=== PATIENT | female | born 1930 | race Caucasian/White ===

== ENCOUNTER 2016-12-20 09:07 | Emergency (ER) | payer MEDICARE, OTHER ==
[2016-12-20] MEDS ORDERED: traMADol HCl 50 MG TAB ONE (09:51)
--- NOTE | 2016-12-20 10:27 | RAD ---
RIGHT RIBS TWO VIEWS CHEST RADIOGRAPH: History: Right upper side pain after sneezing and coughing. Comparison: None. FINDINGS: There is some cortical irregularity of the right lateral 10th rib which may represent underlying fra cture, age indeterminate. Lungs are somewhat hyperinflated. Chronic pleural and parenchymal change s. Dense calcifications in the tracheal bronchial tree. IMPRESSION: Moderate irregularity right lateral 9th and 10th ribs may represent age indeterminate fracture. Cor relation with focal tenderness is recommended. POS: JACOBY
--- NOTE | 2016-12-20 11:02 | ERRECORD ---
[facility] EMERGENCY RECORD HPI GENERAL (09:55 KNGU) CHIEF COMPLAINT: Patient presents for evaluation of R rib pain. HISTORIAN: History provided by patient, per patient , was coughing and sneezing yesterday / with R rib pain after / worse when moving / no shortness of breath chest pain/ no fever or chills / no nausea or vomiting symptoms. MECHANISM OF INJURY: from coughing and sneezing. LOCATION: Symptoms are localized, most severe to R lower rib anterior. QUALITY: Pain is dull in nature, described as aching. SEVERITY: Maximum severity of symptoms moderate, Currently symptoms are moderate. TIME COURSE: Gradual onset of symptoms, There has been no change in the patient's symptoms over time. ASSOCIATED WITH: No associated symptoms. EXACERBATED BY: Patient's condition exacerbated by moving or pressure on rib. RELIEVED BY: Nothing tried for relief. ROS (09:57 KNGU) CONSTITUTIONAL: Negative constitutional review of systems, Historian denies chills, denies fever. EYES: Negative eye review of systems. ENT: Historian reports rhinorrhea. CARDIOVASCULAR: Negative cardiovascular review of systems. RESPIRATORY: Historian reports cough, denies shortness of breath, denies sputum, denies stridor, denies wheezing. GI: Negative gastrointestinal review of systems. MUSCULOSKELETAL: R rib pain. NOTES: All systems reviewed, negative except as described above. PAST MEDICAL HISTORY (09:19 JPAR) MEDICAL HISTORY: Flu vaccine up to date, Pneumococcal vaccine up to date, Past medical history includes history of hyperlipidemia, Past medical history includes history of hypertension. FEMALE SURGICAL HISTORY: Surgical history of cholecystectomy, Surgical history of hysterectomy, Surgical history of orthopedic surgery, BILATERAL KNEE. Both Shoulders, rotator cuff. SOCIAL HISTORY: Patient denies alcohol use, Patient denies drug use, Patient has no smoking history. KNOWN ALLERGIES No Known Drug Allergies CURRENT MEDICATIONS Unknown (09:16 JPAR) fluticasone: &a-1R&a+25V*p+0X*h5745V*c152B*c15G*c2P*p-0X&a-25V&a+1RName: Valencia Hu : F86 MedRec: [id number] AcctNum: [id number] Prepared: Anson Dec 20, 2016 13:58 by Interface Page 1 of 4 pMD [facility] EMERGENCY RECORD SPRAY, SUSPENSION : Strength - 50 mcg : NASAL Patient Dose: 1 spray(s) Intranasal 2 times a day. (09:21 JPAR) azelastine: AEROSOL, SPRAY WITH PUMP (ML) : Strength - 205.5 mcg (0.15 %) : NASAL Patient Dose: 1 spray(s) Intranasal once a day. (09:22 JPAR) pramipexole: TABLET : Strength - 0.25 mg : ORAL Patient Dose: 2 tab(s) Oral once a day (at bedtime). (09:22 JPAR) atenolol: TABLET : Strength - 25 mg : ORAL Patient Dose: 1 tab(s) Oral once a day (at bedtime). (09:23 JPAR) lovastatin: TABLET : Strength - 20 mg : ORAL Patient Dose: 1 tab(s) Oral once a day (in the morning). (09:23 JPAR) lisinopril-hydrochlorothiazide: TABLET : Strength - 20 mg-12.5 mg : ORAL Patient Dose: 1 tab(s) Oral once a day (in the morning). (09:24 JPAR) gabapentin: CAPSULE : Strength - 300 mg : ORAL Patient Dose: 1 tab(s) Oral.unknown. (09:24 JPAR) aspirin: TABLET : Strength - 81 mg : ORAL Patient Dose: 1 tab(s) Oral once a day. (09:24 JPAR) Vitamin D3: CAPSULE : Strength - 1,000 unit : ORAL Patient Dose: 1 cap(s) Oral once a day. (09:26 JPAR) multivitamin: CAPSULE : ORAL Patient Dose: 1 cap(s) Oral once a day. (09:26 JPAR) Multiple Vitamin, Womens: TABLET : ORAL Patient Dose: 1 tab(s) Oral once a day. (09:27 JPAR) VITAL SIGNS VITAL SIGNS: BP: 181/76, Pulse: 63, Resp: 18, Temp: 97.9 (Oral), Pain: 5, O2 sat: 95, Time: 12/20/2016 09:16. (09:16 JPAR) BP: 173/75, Pulse: 61, Resp: 16, O2 sat: 95, Time: 12/20/2016 10:38. (10:38 JPAR) PHYSICAL EXAM (09:59 KNGU) CONSTITUTIONAL: Vital signs reviewed, Patient afebrile, Pulse normal, Blood pressure, hypertensive, Respiratory rate normal, Patient appears non toxic, Patient appears in pain, in mild pain distress, Patient alert and oriented to person, place and time. &a-1R&a+25V*p+0X*y2237O*c152B*c15G*c2P*p-0X&a-25V&a+1RName: Valencia Hu : F86 MedRec: [id number] AcctNum: [id number] Prepared: MonDec 20, 2016 13:58 by Interface Page 2 of 4 pMD [facility] EMERGENCY RECORD HEAD: Head exam normal. EYES: Eye exam normal. ENT: Nose exam included findings of, clear nasal discharge. RESPIRATORY CHEST: Breath sounds clear, No wheezing, No rales, No rhonchi, Tenderness, mild, Palpation of chest reproduces symptoms, R lower rib anteriorly no deformity seen. CARDIOVASCULAR: Cardiovascular assessment normal. BACK: Back exam normal. NEURO: Neuro exam normal. MEDICATION ADMINISTRATION SUMMARY Drug Name: traMADol, Dose Ordered: 1 tab(s), Route: Oral, Status: Given, Time: 09:52 12/20/2016, Detailed record available in Medication Service section. DOCTOR NOTES (09:54 KNGU) TEXT: 86 yo F with cough and sneeze hard last night with R side rib pain no sob no fever or chills xray prelim possible fracture 9 th 10th rib on xray pain meds control cough med to follow up with pcp in few days to recheck. PROBLEM LIST No recorded problems DIAGNOSIS (10:30 KNGU) FINAL: PRIMARY: Rib fracture. PRESCRIPTION traMADol: TABLET : 50 mg : ORAL : Quantity: 1 Unit: tab(s) Route: ORAL Schedule: every 8 hours PRN Dispense: 15 Unit: tab(s) May substitute. Refills: No Refills . (10:31 KNGU) NOTES: No Refills. (10:31 KNGU) Cheratussin AC: LIQUID (ML) : 100 mg-10 mg/5 mL : ORAL : Quantity: 5 Unit: mL Route: ORAL Schedule: every 8 hours PRN Dispense: 1 May substitute. Refills: No Refills . (10:33 KNGU) NOTES: take 3 times a day for cough as needed No Refills. (10:33 KNGU) DISPOSITION PATIENT: Disposition Type: Discharge, Disposition: *Discharge Home. (10:30 KNGU) Patient left the department. (10:45 JPAR) Harrison: &a-1R&a+25V*p+0X*o4930M*c152B*c15G*c2P*p-0X&a-25V&a+1RName: Valencia Hu : F86 MedRec: [id number] AcctNum: [id number] Prepared: ilene Dec 20, 2016 13:58 by Interface Page 3 of 4 pMD [facility] EMERGENCY RECORD CHRISTEN=TONI English, Roc KAY=MD Fay, Chantal &a-1R&a+25V*p+0X*z1627Z*c152B*c15G*c2P*p-0X&a-25V&a+1RName: Valencia Hu : F[birth year] MedRec: [id number] AcctNum: [id number] Prepared: Anson Dec 20, 2016 13:58 by Interface Page 4 of 4 pMD MTDD
--- NOTE | 2016-12-20 11:04 | PICIS ---
[facility] EMERGENCY RECORD TRIAGE (MonDec 20, 2016 09:13 JPAR) TRIAGE NOTES: R upper side pain, started after sneezing and coughing, 2-3 days onset. (MonDec 20, 2016 09:13 JPAR) PATIENT: NAME: Valencia Hu, AGE: 86, GENDER: female, : Kelly 1930, TIME OF GREET: MonDec 20, 2016 09:07, PREFERRED LANGUAGE: Paraguayan, ETHNICITY: Not or , ECODE BILLING MAP: [facility], SSN: [id number], Zip Code: [address], KG WEIGHT: 69.85, PHONE: , , , PERSON ID: [id number], PCP: Stephanie BARLOW C. [facility]. (MonDec 20, 2016 09:13 JPAR) COMPLAINT: RIGHT SIDE PAIN. (MonDec 20, 2016 09:13 JPAR) ADMISSION: URGENCY: 4 Non Urgent, ADMISSION SOURCE: Home, TRANSPORT: CAR, BED: TRIAGE. (MonDec 20, 2016 09:13 JPAR) ASSESSMENT: Assessment: R pain chest wall after coughing and sneezing 2-3 days ago, Symptoms began 2-3 days, Symptoms began 3 days ago. (09:19 JPAR) SIRS SCORING: Heart Rate 55-109 (0), Temp range 96.8-101.1 (0), respiratory rate 12-24 (0), Mental Status altered: no (0), Infection or Suspected Infection: No. (09:19 JPAR) TRIAGE SCREENING: Patient denies suicidal ideation, Patient denies presence of domestic violence. (09:19 JPAR) PROVIDERS: TRIAGE NURSE: Roc English RN. (MonDec 20, 2016 09:13 JPAR) VITAL SIGNS: BP 181/76, Pulse 63, Resp 18, Temp 97.9, (Oral), Pain 5, O2 Sat 95, Time 12/20/2016 09:16. (09:16 JPAR) PREVIOUS VISIT ALLERGIES: No Known Drug Allergies. (MonDec 20, 2016 09:13 JPAR) No Known Drug Allergies. (09:19 JPAR) KNOWN ALLERGIES No Known Drug Allergies CURRENT MEDICATIONS Unknown (09:16 JPAR) fluticasone: SPRAY, SUSPENSION : Strength - 50 mcg : NASAL Patient Dose: 1 spray(s) Intranasal 2 times a day. (09:21 JPAR) azelastine: AEROSOL, SPRAY WITH PUMP (ML) : Strength - 205.5 mcg (0.15 %) : NASAL Patient Dose: 1 spray(s) Intranasal once a day. (09:22 JPAR) pramipexole: TABLET : Strength - 0.25 mg : ORAL Patient Dose: 2 tab(s) Oral once a day (at bedtime). (09:22 JPAR) atenolol: TABLET : Strength - 25 mg : ORAL Patient Dose: 1 tab(s) Oral once a day (at bedtime). (09:23 JPAR) lovastatin: &a-1R&a+25V*p+0X*t3747P*c152B*c15G*c2P*p-0X&a-25V&a+1RName: Valencia Hu : F86 MedRec: [id number] AcctNum: [id number] Prepared: Anson Dec 20, 2016 14:04 by Interface Page 1 of 6 pMD [facility] EMERGENCY RECORD TABLET : Strength - 20 mg : ORAL Patient Dose: 1 tab(s) Oral once a day (in the morning). (09:23 JPAR) lisinopril-hydrochlorothiazide: TABLET : Strength - 20 mg-12.5 mg : ORAL Patient Dose: 1 tab(s) Oral once a day (in the morning). (09:24 JPAR) gabapentin: CAPSULE : Strength - 300 mg : ORAL Patient Dose: 1 tab(s) Oral.unknown. (09:24 JPAR) aspirin: TABLET : Strength - 81 mg : ORAL Patient Dose: 1 tab(s) Oral once a day. (09:24 JPAR) Vitamin D3: CAPSULE : Strength - 1,000 unit : ORAL Patient Dose: 1 cap(s) Oral once a day. (09:26 JPAR) multivitamin: CAPSULE : ORAL Patient Dose: 1 cap(s) Oral once a day. (09:26 JPAR) Multiple Vitamin, Womens: TABLET : ORAL Patient Dose: 1 tab(s) Oral once a day. (09:27 JPAR) VITAL SIGNS VITAL SIGNS: BP: 181/76, Pulse: 63, Resp: 18, Temp: 97.9 (Oral), Pain: 5, O2 sat: 95, Time: 12/20/2016 09:16. (09:16 JPAR) BP: 173/75, Pulse: 61, Resp: 16, O2 sat: 95, Time: 12/20/2016 10:38. (10:38 JPAR) NURSING ASSESSMENT: FOCUSED (09:14 JPAR) CONSTITUTIONAL: Patient arrives, via personal wheelchair, Gait steady, History obtained from patient, Patient appears comfortable, Patient cooperative, Patient alert, Oriented to person, place and time, Skin warm, Skin dry, Skin normal in color, Mucous membranes pink, Mucous membranes moist, Patient complains of R rib cage pain 2-3 days, started after sneezing/ coughing episode 3 days ago. PAIN: aching pain, Onset of pain 2-3 days, on a scale 0-10 patient rates pain as 5, Pain exacerbated by, bending, lifting, Taking deep breaths or coughing. RESPIRATORY: Focused respiratory assessment findings include breath sounds clear, Breath sounds not absent, Breath sounds not diminished, Breath sounds without rales, Breath sounds without rhonchi, Breath sounds without wheezing. SAFETY: Side rails up, Cart/Stretcher in lowest position, Family at bedside, Call light within reach, Hospital ID band on. NURSING PROCEDURE: DISCHARGE NOTE (10:38 JPAR) DISCHARGE: Patient discharged to home, in a wheelchair, family driving, accompanied by other family member, Summary of Care &a-1R&a+25V*p+0X*n3471J*c152B*c15G*c2P*p-0X&a-25V&a+1RName: Valencia Hu : F86 MedRec: [id number] AcctNum: [id number] Prepared: Anson Dec 20, 2016 14:04 by Interface Page 2 of 6 pMD [facility] EMERGENCY RECORD printed/ provided, Patient requested and was provided an electronic copy of Discharge Instructions, Transition record given to patient, Discharge instructions given to patient, Simple or moderate discharge teaching performed, Prescriptions given and instructions on side effects given, Name of prescription(s) given: Tramadol & Cheratussin, Medication reconciliation form given, Above person(s) verbalized understanding of discharge instructions and follow-up care, Patient treated and evaluated by physician. BELONGINGS: Belongings and valuables with patient at time of discharge include:, Belongings remain with patient, Valuables remain with patient. SAFETY: Side rails up, Cart/Stretcher in lowest position, Family at bedside, Call light within reach, Hospital ID band on. VITAL SIGNS: BP: 173, / 75, Pulse: 61, Resp: 16, O2 sat: 95. NURSING PROCEDURE: TRANSPORT TO TESTS TRANSPORT TO TESTS: Patient transported to x-ray, via cart, Accompanied by x-ray photovoltaic testing technician. (09:33 CCRI) Patient transported to x-ray, via cart, Accompanied by x-ray photovoltaic testing technician, Patient arrived in location at 09:45A, Patient departed location at 09:55A. (09:54 CCRI) ORDER DETAILS Order Name: XR Ribs Rt>= 2 View W/PA CXR, Status: Active, Time: 09:27 12/20/2016, User: ELIZA, - Ordered for: MD Fay, Chantal, - Entered by: MD Fay, Chantal Caro ilene Dec 20, 2016 09:27, - Quantity: 1. MEDICATION ADMINISTRATION SUMMARY Drug Name: traMADol, Dose Ordered: 1 tab(s), Route: Oral, Status: Given, Time: 09:52 12/20/2016, Detailed record available in Medication Service section. MEDICATION SERVICE (09:52 [facility]) traMADol: Order: traMADol (tramadol HCl) - Dose: 1 tab(s) : Oral Schedule: Now Ordered by: Chantal Aponte MD Entered by: Chantal Aponte MD ilene Dec 20, 2016 09:28 , Acknowledged by: Roc English RN ilene Dec 20, 2016 09:28 Documented as given by: Roc English RN ilene Dec 20, 2016 09:52 Patient, Medication, Dose, Route and Time verified prior to administration. Correct patient, time, route, dose and medication confirmed prior to administration, Patient advised of actions and side-effects prior to administration, Allergies confirmed and medications reviewed prior to administration, Patient in position of comfort, Side rails up, Cart in lowest position, Family at bedside, Call light in reach. &a-1R&a+25V*p+0X*s7899W*c152B*c15G*c2P*p-0X&a-25V&a+1RName: Valencia Hu : F86 MedRec: [id number] AcctNum: [id number] Prepared: Anson Dec 20, 2016 14:04 by Interface Page 3 of 6 pMD [facility] EMERGENCY RECORD HPI GENERAL (09:55 KNGU) CHIEF COMPLAINT: Patient presents for evaluation of R rib pain. HISTORIAN: History provided by patient, per patient , was coughing and sneezing yesterday / with R rib pain after / worse when moving / no shortness of breath chest pain/ no fever or chills / no nausea or vomiting symptoms. MECHANISM OF INJURY: from coughing and sneezing. LOCATION: Symptoms are localized, most severe to R lower rib anterior. QUALITY: Pain is dull in nature, described as aching. SEVERITY: Maximum severity of symptoms moderate, Currently symptoms are moderate. TIME COURSE: Gradual onset of symptoms, There has been no change in the patient's symptoms over time. ASSOCIATED WITH: No associated symptoms. EXACERBATED BY: Patient's condition exacerbated by moving or pressure on rib. RELIEVED BY: Nothing tried for relief. ROS (09:57 KNGU) CONSTITUTIONAL: Negative constitutional review of systems, Historian denies chills, denies fever. EYES: Negative eye review of systems. ENT: Historian reports rhinorrhea. CARDIOVASCULAR: Negative cardiovascular review of systems. RESPIRATORY: Historian reports cough, denies shortness of breath, denies sputum, denies stridor, denies wheezing. GI: Negative gastrointestinal review of systems. MUSCULOSKELETAL: R rib pain. NOTES: All systems reviewed, negative except as described above. PAST MEDICAL HISTORY (09:19 JPAR) MEDICAL HISTORY: Flu vaccine up to date, Pneumococcal vaccine up to date, Past medical history includes history of hyperlipidemia, Past medical history includes history of hypertension. FEMALE SURGICAL HISTORY: Surgical history of cholecystectomy, Surgical history of hysterectomy, Surgical history of orthopedic surgery, BILATERAL KNEE. Both Shoulders, rotator cuff. SOCIAL HISTORY: Patient denies alcohol use, Patient denies drug use, Patient has no smoking history. PHYSICAL EXAM (09:59 KNGU) CONSTITUTIONAL: Vital signs reviewed, Patient afebrile, Pulse normal, Blood pressure, hypertensive, Respiratory rate normal, Patient appears non toxic, Patient appears in pain, in mild pain distress, Patient alert and &a-1R&a+25V*p+0X*h0051F*c152B*c15G*c2P*p-0X&a-25V&a+1RName: Valencia Hu : F86 MedRec: [id number] AcctNum: [id number] Prepared: MonDec 20, 2016 14:04 by Interface Page 4 of 6 pMD [facility] EMERGENCY RECORD oriented to person, place and time. HEAD: Head exam normal. EYES: Eye exam normal. ENT: Nose exam included findings of, clear nasal discharge. RESPIRATORY CHEST: Breath sounds clear, No wheezing, No rales, No rhonchi, Tenderness, mild, Palpation of chest reproduces symptoms, R lower rib anteriorly no deformity seen. CARDIOVASCULAR: Cardiovascular assessment normal. BACK: Back exam normal. NEURO: Neuro exam normal. EVENTS TRANSFER: Triage to Emergency Triage. (MonDec 20, 2016 09:13 JPAR) Emergency Triage to Emergency Room -02. (09:16 JPAR) Removed from Emergency Emergency Room -02. (10:45 JPAR) DOCTOR NOTES (09:54 KNGU) TEXT: 86 yo F with cough and sneeze hard last night with R side rib pain no sob no fever or chills xray prelim possible fracture 9 th 10th rib on xray pain meds control cough med to follow up with pcp in few days to recheck. PROBLEM LIST No recorded problems DIAGNOSIS (10:30 KNGU) FINAL: PRIMARY: Rib fracture. DISPOSITION PATIENT: Disposition Type: Discharge, Disposition: *Discharge Home. (10:30 KNGU) Patient left the department. (10:45 JPAR) INSTRUCTION (10:33 KNGU) DISCHARGE: RIB FRACTURE. FOLLOWUP: Stephanie BARLOW, Chong OTT, [facility], [address] [place] [id number], [phone]. SPECIAL: avoid heavy lifting / bending motion take pain medications / cough medication as needed Follow-up with your PCP in few days to recheck. PRESCRIPTION traMADol: TABLET : 50 mg : ORAL : Quantity: 1 Unit: tab(s) Route: ORAL Schedule: every 8 hours PRN Dispense: 15 Unit: tab(s) &a-1R&a+25V*p+0X*k2296M*c152B*c15G*c2P*p-0X&a-25V&a+1RName: Valencia Hu : F86 MedRec: [id number] AcctNum: [id number] Prepared: MonDec 20, 2016 14:04 by Interface Page 5 of 6 pMD [facility] EMERGENCY RECORD May substitute. Refills: No Refills . (10:31 KNGU) NOTES: No Refills. (10:31 KNGU) Cheratussin AC: LIQUID (ML) : 100 mg-10 mg/5 mL : ORAL : Quantity: 5 Unit: mL Route: ORAL Schedule: every 8 hours PRN Dispense: 1 May substitute. Refills: No Refills . (10:33 KNGU) NOTES: take 3 times a day for cough as needed No Refills. (10:33 KNGU) IMAGING (10:44 JPAR) *SUPPLY CHARGE SHEET: Image captured from scanner. *DISCHARGE INSTRUCTIONS RECEIPT: Image captured from scanner. ADMIN (13:53 KNGU) DIGITAL SIGNATURE: MD Fay, Chantal. Harrison: CCRI=VIDYA Hernandez Clemente JPAR=Amador, TONI, Roc KNGU=MD Fay, Chantal &a-1R&a+25V*p+0X*u2314I*c152B*c15G*c2P*p-0X&a-25V&a+1RName: Valencia Hu : F[birth year] MedRec: [id number] AcctNum: [id number] Prepared: MonDec 20, 2016 14:04 by Interface Page 6 of 6 pMD MTDD
== END 2016-12-20 10:38 | disposition home or self-care (01) ==
LOC: NAV ERS 09:07
DX: S22.31XA Fracture of one rib, right side, initial encounter for closed fracture (principal); I10 Essential (primary) hypertension; E78.5 Hyperlipidemia, unspecified; Z79.82 Long term (current) use of aspirin; Z79.899 Other long term (current) drug therapy; X58.XXXA Exposure to other specified factors, initial encounter
CPT/HCPCS: 99283

== ENCOUNTER 2016-12-22 18:06 | Emergency (ER) | payer MEDICARE, OTHER ==
[2016-12-22 19:00] LABS: #Basophils 0.1 thou/uL (0.0-0.2); #Eosinphils 0.1 thou/uL (0.0-0.7); #Lymphocytes 2.2 thou/uL (1.20-3.40); #Monocytes 0.7 thou/uL (0.11-0.59); #Neutrophils 6.4 thou/uL (1.40-6.50); %Basophils 0.7 % (0.0-1.0); %Eosinophils 1.5 % (0.0-10.0); %Lymphocytes 23.6 % (21.0-51.0); %Monocytes 7.1 % (0.0-10.0); Hematocrit 36.9 % (36.0-47.0); Red Blood Cell (RBC) Count 4.03 mill/uL (4.20-5.40); White Blood Cell (WBC) Count 9.5 thou/uL (4.8-10.8)
[2016-12-22 19:07] LABS: Bilirubin Negative (Negative); Blood, Urine Negative (Negative); Glucose, Urine (Dipstick) Negative (Negative); Ketone, Urine Negative (Negative); Nitrite Negative (Negative); Protein, Urine (Dipstick) Negative (Neg-Trace); Urobilinogen 0.2 mg/dL (0.2-1.0)
[2016-12-22 19:09] LABS: ALT (SGPT) 12 U/L (0-55); AST (SGOT) 22 U/L (5-34); Alkaline Phosphatase 89 U/L (40-150); Anion Gap 14 mmol/L (10-20); BUN (Urea Nitrogen) 33 mg/dL (9.8-20.1); Bilirubin, Total 0.2 mg/dL (0.2-1.2); Calc. Creatinine Clearance 0 mL/min (70-130); Calcium 8.9 mg/dL (7.8-10.44); Carbon Dioxide 21 mmol/L (23-31); Chloride 103 mmol/L (98-107); Estimated GFR-MDRD 36; Globulin 2.5 g/dL (2.4-3.5); Protein, Total 6.1 g/dL (5.8-8.1)
[2016-12-22 19:35] LABS: Bacteria/HPF Rare-Few HPF (None Seen); Squamous Epithelial 0-3 HPF (0-3)
[2016-12-22] MEDS ORDERED: Cipro 250 MG TAB ONE (19:38)
--- NOTE | 2016-12-22 20:14 | ERRECORD ---
[facility] EMERGENCY RECORD ADMIN (18:16 BDON) MERGE: Ambulance Kelly Dec 22, 2016 17:59. HPI FALL (Sat Dec 24, 2016 07:30 JLOY) CHIEF COMPLAINT: Patient presents for evaluation of Pt was seen in ER 3 days ago for right rib fracture from coughing. Has had a bad cough for 'some time'. Given codeine cough syrup and tramadol per family and since then has been a little more confused than usual. Also a little more generalized weakness. No other symptoms. Pt was found on the floor by family today after she slid down onto the gorund getting out of bed. Landed flat on her back and reports no injury or pain. Pt lay there for 1-2 hours before being found. HISTORIAN: History provided by patient, History provided by patient's family. LOCATION: No localizing symptoms. ASSOCIATED WITH: No associated contusion(s), No associated laceration(s), No associated deformity, Associated with Chronic right low back pain unchanged., No associated blurred vision, No associated inability to ambulate, No associated inability to bear weight, No associated headache, No associated loss of consciousness, No associated neurological symptoms prior to arrival, No associated numbness, No associated syncope, No associated vomiting. EXACERBATED BY: Patient's condition exacerbated by nothing. RELIEVED BY: Patient's condition relieved by nothing. ROS ([facility] Dec 24, 2016 07:33 JLOY) CONSTITUTIONAL: Historian denies chills, denies fever. ENT: Historian denies rhinorrhea, denies sore throat. CARDIOVASCULAR: Historian denies chest pain. RESPIRATORY: Historian reports cough, denies shortness of breath, denies sputum. GI: Historian denies abdominal pain, denies diarrhea, denies nausea, denies vomiting. GENITOURINARY FEMALE: Historian denies dysuria, denies frequency, denies hematuria. MUSCULOSKELETAL: Historian denies neck pain, Chronic right low back pain. SKIN: Historian denies rash, denies skin changes. NEUROLOGIC: Historian denies dizziness, denies headache, denies paralysis, denies paresthesias, denies sensory changes. PAST MEDICAL HISTORY MEDICAL HISTORY: Flu vaccine up to date, Pneumococcal vaccine up to date, Past medical history includes history of hyperlipidemia, Past medical history includes history of hypertension. (18:16 LHAL) FEMALE SURGICAL HISTORY: Surgical history of cholecystectomy, Surgical history of hysterectomy, Surgical history of orthopedic surgery, BILATERAL KNEE. Both Shoulders, rotator cuff. (18:16 LHAL) SOCIAL HISTORY: Patient denies alcohol use, Patient denies &a-1R&a+25V*p+0X*[id number]*c152B*c15G*c2P*p-0X&a-25V&a+1RName: Valencia Hu : F86 MedRec: [id number] AcctNum: [id number] Prepared: [facility] Dec 24, 2016 07:44 by Interface Page 1 of 4 pMD [facility] EMERGENCY RECORD drug use, Patient has no smoking history. (18:16 LHAL) NOTES: Nursing records reviewed, Agree with nursing records. ([facility] Dec 24, 2016 07:35 JL) KNOWN ALLERGIES No Known Drug Allergies CURRENT MEDICATIONS fluticasone: SPRAY, SUSPENSION : Strength - 50 mcg : NASAL Patient Dose: 1 spray(s) Intranasal 2 times a day. (18:12 LHAL) azelastine: AEROSOL, SPRAY WITH PUMP (ML) : Strength - 205.5 mcg (0.15 %) : NASAL Patient Dose: 1 spray(s) Intranasal once a day. (18:12 LHAL) pramipexole: TABLET : Strength - 0.25 mg : ORAL Patient Dose: 2 tab(s) Oral once a day (at bedtime). (18:12 LHAL) atenolol: TABLET : Strength - 25 mg : ORAL Patient Dose: 1 tab(s) Oral once a day (at bedtime). (18:12 LHAL) lovastatin: TABLET : Strength - 20 mg : ORAL Patient Dose: 1 tab(s) Oral once a day (in the morning). (18:12 LHAL) lisinopril-hydrochlorothiazide: TABLET : Strength - 20 mg-12.5 mg : ORAL Patient Dose: 1 tab(s) Oral once a day (in the morning). (18:12 LHAL) gabapentin: CAPSULE : Strength - 300 mg : ORAL Patient Dose: 1 tab(s) Oral.unknown. (18:12 LHAL) aspirin: TABLET : Strength - 81 mg : ORAL Patient Dose: 1 tab(s) Oral once a day. (18:12 LHAL) Vitamin D3: CAPSULE : Strength - 1,000 unit : ORAL Patient Dose: 1 cap(s) Oral once a day. (18:12 LHAL) multivitamin: CAPSULE : ORAL Patient Dose: 1 cap(s) Oral once a day. (18:12 LHAL) Multiple Vitamin, Womens: TABLET : ORAL Patient Dose: 1 tab(s) Oral once a day. (18:13 LHAL) traMADol: TABLET : Strength - 50 mg : ORAL Patient Dose: 1 tab(s) Oral every 8 hours PRN. (18:13 LHAL) Cheratussin AC: &a-1R&a+25V*p+0X*[id number]*c152B*c15G*c2P*p-0X&a-25V&a+1RName: Valencia Hu : F86 MedRec: [id number] AcctNum: [id number] Prepared: Sat Dec 24, 2016 07:44 by Interface Page 2 of 4 pMD [facility] EMERGENCY RECORD LIQUID (ML) : Strength - 100 mg-10 mg/5 mL : ORAL Patient Dose: 5 mL Oral every 8 hours PRN.take 3 times a day for cough as needed. (18:13 LHAL) VITAL SIGNS VITAL SIGNS: BP: 148/64 (Sitting), Pulse: 82 (Regular), Resp: 16 (Non-Labored), Temp: 96.8 (Oral), Pain: 2 (Constant), O2 sat: 96 on Room Air, Time: 12/22/2016 18:11. (18:11 LHAL) BP: 144/68, Pulse: 82, Resp: 20, Temp: 97.2 ORAL, O2 sat: 97 on ra, Time: 12/22/2016 19:55. (19:55 EPIE) PHYSICAL EXAM (Sat Dec 24, 2016 07:33 JLOY) CONSTITUTIONAL: Vital signs reviewed, Patient appears non toxic, Patient alert and oriented to person, place and time, PT fully oriented and no signs of confusion on exam but family reports her responses aren't as fast as usual. HEAD: Head exam included findings of head atraumatic, normocephalic. EYES: Eye exam included findings of eyelids normal to inspection, Pupils equally round and reactive to light, Extraocular muscles intact, Conjunctiva normal. ENT: Pharynx exam normal, Uvula exam normal, Tonsil exam normal, Mouth exam normal, mucous membranes moist. NECK: Neck exam included findings of normal range of motion, Trachea midline, no tenderness, no abrasions, no contusions, no ecchymosis. RESPIRATORY CHEST: Respiratory exam included findings of no respiratory distress, Breath sounds clear, No wheezing, No rales, No rhonchi, Chest exam included findings of chest movement symmetrical, Tenderness, mild, to the right anterior chest. CARDIOVASCULAR: Cardiovascular exam included findings of heart rate regular rate and rhythm, Heart sounds normal. ABDOMEN FEMALE: Abdominal exam included findings of abdomen nontender, Bowel sounds normal. BACK: Back exam included findings of normal inspection, range of motion normal, Tenderness, paraspinal to the right lower, No midline tenderness. UPPER EXTREMITY: Upper extremity exam included findings of inspection normal, range of motion normal, Radial pulse normal, no cyanosis, no clubbing, no edema. NEURO: Neuro exam findings include patient oriented to person, place and time, [place] coma scale 15, Speech normal. SKIN: Skin exam included findings of skin warm, dry, and normal in color, no rash. PSYCHIATRIC: Normal affect. MEDICATION ADMINISTRATION SUMMARY Drug Name: ciprofloxacin HCl oral, Dose Ordered: 250 mg, Route: Oral, Status: Ordered, Time: 19:36 12/22/2016, Detailed record available in &a-1R&a+25V*p+0X*[id number]*c152B*c15G*c2P*p-0X&a-25V&a+1RName: Valencia Hu : F86 MedRec: [id number] AcctNum: [id number] Prepared: Sat Dec 24, 2016 07:44 by Interface Page 3 of 4 pMD [facility] EMERGENCY RECORD Medication Service section. DOCTOR NOTES (Sat Dec 24, 2016 07:36 JLOY) TEXT: Possible UTI but symptoms likely related to codeine or tramadol side effects. Pt also started amitriptyline 3 days ago which could account for her symptoms. Will hold these new meds. PROBLEM LIST No recorded problems DIAGNOSIS (19:37 JLOY) FINAL: PRIMARY: UTI, ADDITIONAL: Altered mental status. PRESCRIPTION (19:36 JLOY) ciprofloxacin HCl oral: TABLET : 250 mg : ORAL : Quantity: 250 Unit: mg Route: ORAL Schedule: 2 times a day Dispense: 5 days May substitute. Refills: No Refills . NOTES: No Refills. DISPOSITION PATIENT: Disposition Type: Discharge, Disposition: *Discharge Home. (19:37 JACOBO) Patient left the department. (20:06 MAUDE) Harrison: ROSALBA=TONI Lee, Irish SANTORO=TONI Sainz, Mady CENTENO=MD Alberto, Vinny CARDONAAL=TONI Cartwright, Marcy &a-1R&a+25V*p+0X*[id number]*c152B*c15G*c2P*p-0X&a-25V&a+1RName: Valencia Hu : F86 MedRec: [id number] AcctNum: [id number] Prepared: Navin Dec 24, 2016 07:44 by Interface Page 4 of 4 pMD MTDD
--- NOTE | 2016-12-22 20:18 | PICIS ---
[facility] EMERGENCY RECORD ADMIN MERGE: Ambulance MonDec 22, 2016 17:59. (18:16 BDON) TRIAGE (MonDec 22, 2016 18:12 LHAL) TRIAGE NOTES: NO REAL COMPLAINT, HAS CHRONIC NECK/BACK PAIN. (MonDec 22, 2016 18:12 LHAL) PATIENT: NAME: Valencia Hu, AGE: 86, GENDER: female, : Kelly 1930, TIME OF GREET: MonDec 22, 2016 18:07, PREFERRED LANGUAGE: Yakut, ETHNICITY: Not or , ECODE BILLING MAP: [facility] ER, SSN: [id number], Zip Code: [address], KG WEIGHT: 68.95, PHONE: daug, , , PERSON ID: [id number], PCP: Stephanie BARLOW C. HENRY. (Kelly Dec 22, 2016 18:12 LHAL) COMPLAINT: FELL,OVER MEDICATION. (MonDec 22, 2016 18:12 LHAL) ADMISSION: URGENCY: 4 Non Urgent, ADMISSION SOURCE: Home, TRANSPORT: AMBULANCE - [facility], BED: ER -02. (MonDec 22, 2016 18:12 LHAL) ASSESSMENT: Assessment: DAUGHTER THINKS PT IS OVER MEDICATING HERSELF AND WAS FOUND OF FLOOR UX MANAGER, Symptoms began JUST UX MANAGER. (18:16 LHAL) PAIN: Patient complains of pain described as, aching, on a scale 0-10 patient rates pain as 2, Location PT HAS [place] CHRONIC NECK AND BACK PAIN, SHE STATES "SINCE 1942", Pain is intermittent, No aggravating factors, No efforts tried to relieve symptoms. (18:16 LHAL) IMMUNIZATIONS: Flu vaccine up to date, Tetanus immunization up to date, Pneumococcal vaccine up to date. (18:16 LHAL) SIRS SCORING: Heart Rate 55-109 (0), Temp range 96.8-101.1 (0), respiratory rate 12-24 (0), Mental Status altered: no (0), Infection or Suspected Infection: No. (18:16 LHAL) TRIAGE SCREENING: Patient denies suicidal ideation, Patient denies presence of domestic violence. (18:16 LHAL) PROVIDERS: TRIAGE NURSE: Marcy Cartwright RN. ([facility] Dec 22, 2016 18:12 LHAL) VITAL SIGNS: BP 148/64, (Sitting), Pulse 82, (Regular), Resp 16, (Non-Labored), Temp 96.8, (Oral), Pain 2, (Constant), O2 Sat 96, on Room Air, Time 12/22/2016 18:11. (18:11 LHAL) PREVIOUS VISIT ALLERGIES: No Known Drug Allergies. ([facility] Dec 22, 2016 18:12 LHAL) No Known Drug Allergies. (18:16 LHAL) KNOWN ALLERGIES No Known Drug Allergies CURRENT MEDICATIONS fluticasone: SPRAY, SUSPENSION : Strength - 50 mcg : NASAL Patient Dose: 1 spray(s) Intranasal 2 times a day. (18:12 LHAL) azelastine: AEROSOL, SPRAY WITH PUMP (ML) : Strength - 205.5 mcg (0.15 %) : NASAL &a-1R&a+25V*p+0X*s1894C*c152B*c15G*c2P*p-0X&a-25V&a+1RName: Valencia Hu : F86 MedRec: [id number] AcctNum: [id number] Prepared: Sat Dec 24, 2016 07:44 by Interface Page [address] [facility] EMERGENCY RECORD Patient Dose: 1 spray(s) Intranasal once a day. (18:12 LHAL) pramipexole: TABLET : Strength - 0.25 mg : ORAL Patient Dose: 2 tab(s) Oral once a day (at bedtime). (18:12 LHAL) atenolol: TABLET : Strength - 25 mg : ORAL Patient Dose: 1 tab(s) Oral once a day (at bedtime). (18:12 LHAL) lovastatin: TABLET : Strength - 20 mg : ORAL Patient Dose: 1 tab(s) Oral once a day (in the morning). (18:12 LHAL) lisinopril-hydrochlorothiazide: TABLET : Strength - 20 mg-12.5 mg : ORAL Patient Dose: 1 tab(s) Oral once a day (in the morning). (18:12 LHAL) gabapentin: CAPSULE : Strength - 300 mg : ORAL Patient Dose: 1 tab(s) Oral.unknown. (18:12 LHAL) aspirin: TABLET : Strength - 81 mg : ORAL Patient Dose: 1 tab(s) Oral once a day. (18:12 LHAL) Vitamin D3: CAPSULE : Strength - 1,000 unit : ORAL Patient Dose: 1 cap(s) Oral once a day. (18:12 LHAL) multivitamin: CAPSULE : ORAL Patient Dose: 1 cap(s) Oral once a day. (18:12 LHAL) Multiple Vitamin, Womens: TABLET : ORAL Patient Dose: 1 tab(s) Oral once a day. (18:13 LHAL) traMADol: TABLET : Strength - 50 mg : ORAL Patient Dose: 1 tab(s) Oral every 8 hours PRN. (18:13 LHAL) Cheratussin AC: LIQUID (ML) : Strength - 100 mg-10 mg/5 mL : ORAL Patient Dose: 5 mL Oral every 8 hours PRN.take 3 times a day for cough as needed. (18:13 LHAL) VITAL SIGNS VITAL SIGNS: BP: 148/64 (Sitting), Pulse: 82 (Regular), Resp: 16 (Non-Labored), Temp: 96.8 (Oral), Pain: 2 (Constant), O2 sat: 96 on Room Air, Time: 12/22/2016 18:11. (18:11 LHAL) BP: 144/68, Pulse: 82, Resp: 20, Temp: 97.2 ORAL, O2 sat: 97 on ra, Time: 12/22/2016 19:55. (19:55 EPIE) NURSING ASSESSMENT: FOCUSED (18:16 LHAL) CONSTITUTIONAL: Patient arrives, via stretcher, via [facility], Unsteady gait, Lift to cart, &a-1R&a+25V*p+0X*k3779E*c152B*c15G*c2P*p-0X&a-25V&a+1RName: Valencia Hu : F[birth year] MedRec: [id number] AcctNum: [id number] Prepared: Sat Dec 24, 2016 07:44 by Interface Page [address] [facility] EMERGENCY RECORD History obtained from patient, Patient appears comfortable, Patient cooperative, Patient alert, Oriented to person, place and time, Skin warm, Skin dry, Skin normal in color, Mucous membranes pink, Mucous membranes moist, Patient is well-groomed, Patient complains of PT HAS NO REAL COMPLAINT, AFTER DAUGHTER ARRIVES SHE FEELS LIKE HER MOM IS OVER MEDICATING HERSELF, AND WAS FOUND ON FLOOR. PAIN: aching pain, BACK/NECK, CHRONIC ISSUES, NO ACUTE INJURY, intermittent, on a scale 0-10 patient rates pain as 2, Pain exacerbated by nothing, Nothing has been tried to alleviate the pain. EYES: Focused eye assessment finding include pupils equally round and reactive to light, Left pupil 2 mm in size, Right pupil 2 mm in size. NEURO: Focused neuro assessment findings include patient alert, cooperative, No facial droop noted, Speech incoherent, no weakness, no numbness, No loss of consciousness, Notes: PT STATES SHE FEELS GENERALLY TIRED. GCS: GCS Total: 15. RESPIRATORY: Focused respiratory assessment findings include breath sounds clear, to the left upper lobe, to the right upper lobe, to bilateral upper lobes, to the right middle lobe, to the left lower lobe, to the right lower lobe, to bilateral lower lobes. ABDOMEN: Focused abdominal assessment findings include abdomen soft, non tender, no diarrhea, no complaint of nausea, no vomiting, Bowel sounds present. GENITOURINARY FEMALE: Focused genitourinary assessment not applicable. MUSCULOSKELETAL: Focused musculoskeletal assessment findings include normal range of motion. LACERATION: Focused laceration assessment not applicable. SAFETY: Side rails up, Cart/Stretcher in lowest position, Family at bedside, Call light within reach, Hospital ID band on. NURSING PROCEDURE: BEDSIDE RADIOLOGY BEDSIDE RADIOLOGY: Portable chest x-ray performed. (18:55 EPIE) Bedside radiology performed by CC, Portable chest x-ray performed. (18:45 CCRI) NURSING PROCEDURE: DISCHARGE NOTE (19:55 EPIE) DISCHARGE: Patient discharged to home, in a wheelchair, family driving, accompanied by other family member, Summary of Care printed/ provided, Discharge instructions given to patient, Simple or moderate discharge teaching performed, Prescriptions given and instructions on side effects given, Name of prescription(s) given: cipro, Above person(s) verbalized understanding of discharge instructions and follow-up care. BELONGINGS: Belongings and valuables with patient upon arrival to the Emergency Department include:, Belongings and valuables with patient at time of discharge include:, Belongings remain with patient, Valuables remain with patient. VITAL SIGNS: BP: 144, / 68, Pulse: 82, Resp: 20, Temp: 97.2 ORAL, &a-1R&a+25V*p+0X*e3236V*c152B*c15G*c2P*p-0X&a-25V&a+1RName: Valencia Hu : F86 MedRec: [id number] AcctNum: [id number] Prepared: Sat Dec 24, 2016 07:44 by Interface Page [address] [facility] EMERGENCY RECORD O2 sat: 97, on: ra. NURSING PROCEDURE: LAB DRAW PATIENT IDENTIFIER: Patient actively involved in identification process, Patient's identity verified by patient stating name, Patient's identity verified by patient stating date, Patient's identity verified by hospital ID bracelet, Patient's identity verified by family member. (18:40 LHAL) Patient actively involved in identification process, Patient's identity verified by patient stating name, Patient's identity verified by hospital ID bracelet. (18:55 EPIE) LAB DRAW: Lab draw indicated for obtaining specimens for evaluation, Initial lab draw performed, by venipuncture, from right antecubital, in one attempt, Lab specimens labeled in the presence of the patient and sent to lab. (18:40 LHAL) Subsequent lab draw performed, by venipuncture, from left hand, in one attempt, Lab specimens labeled in the presence of the patient and sent to lab. (18:55 EPIE) FOLLOW-UP: After procedure, dressing applied to site, After procedure, no swelling at site, After procedure, no active bleeding from site. (18:40 LHAL) After procedure, dressing applied to site, After procedure, no swelling at site, After procedure, no active bleeding from site. (18:55 EPIE) SAFETY: Side rails up, Cart/Stretcher in lowest position, Family at bedside, Call light within reach, Hospital ID band on. (18:40 LHAL) NURSING PROCEDURE: NURSE NOTES NURSES NOTES: Notes: DAUGHTER HERE NOW, STATES PT SEEN HERE FEW DAYS AGO FOR FX RIB S/P FALL AND SHE WENT TO HER MOMS APT JUST UX MANAGER AND STATES SHE THINKS HER MOM IS OVER MEDICATING HERSELF, AND WAS FOUND LAYING FLAT ON HER BACK ON FLOOR. PT STATED ON ARRIVAL SHE SLID HERSELF OUT OF BED ONTO FLOOR TO REACH HER WALKER, THEN CALLED 911 FOR LIFT ASSIST, THEN FIREMEN CALLED EMS BECAUSE PT WANTED TO GO TO HOSPITAL, PT DENIES FALLING, PT A&OX3. (18:13 LHAL) Patient examined by physician. (18:18 LHAL) Shift change report given, to MADY SAINZ RN, Provided opportunity to answer questions, Line reconciliation completed. (18:47 LHAL) Notes: Pt assisted to bedside commode with 2 RN assistance. Pt tolerated well. RR even and unlabored. NAD. Awaiting lab results. (19:11 EPIE) Notes: Pt assisted onto bedside commode with 2RN. Pt tolerated well. NAD. (19:40 EPIE) NURSING PROCEDURE: URINE COLLECTION (18:44 LHAL) PATIENT IDENTIFIER: Patient actively involved in identification process, Patient's identity verified by patient stating name, Patient's identity verified by patient stating date, Patient's identity verified by hospital ID bracelet, Patient's identity verified by family member. URINE COLLECTION FEMALE: Urine collection indicated for BACK &a-1R&a+25V*p+0X*s1830F*c152B*c15G*c2P*p-0X&a-25V&a+1RName: Valencia Hu : F[birth year] MedRec: [id number] AcctNum: [id number] Prepared: Sat Dec 24, 2016 07:44 by Interface Page [address] [facility] EMERGENCY RECORD PAIN, Urine collected by straight cath, using an 8fr catheter kit, in one attempt, output amount (mL) 10, urine yellow in color, and clear, Specimen collected, labeled in the presence of the patient and sent to lab. SAFETY: Side rails up, Cart/Stretcher in lowest position, Family at bedside, Call light within reach, Hospital ID band on. ORDER DETAILS Order Name: CATH STRAIGHT ED, Status: Done, Time: 19:21 12/22/2016, User: [email or web address], - Ordered for: MD Alberto, Vinny, - Entered by: TONI Sainz, Mady Caro [facility] Dec 22, 2016 19:21, - Quantity: 1, Order Name: CBC with Differential, Status: Active, Time: 18:34 12/22/2016, User: [email or web address], - Ordered for: MD Dominguez Joshua, - Entered by: MD Dominguez Joshua - [facility] Dec 22, 2016 18:34, - Quantity: 1, Order Name: Comprehensive Metabolic Panel, Status: Active, Time: 18:34 12/22/2016, User: [email or web address], - Ordered for: MD Dominguez Joshua, - Entered by: MD Dominguez Joshua - [facility] Dec 22, 2016 18:34, - Quantity: 1, Order Name: Culture, Urine, Status: Active, Time: 19:37 12/22/2016, User: [email or web address], - Ordered for: MD Dominguez Joshua, - Entered by: MD Dominguez Joshua - [facility] Dec 22, 2016 19:37, - Quantity: 1, Order Name: Urinalysis w/ Rflx Microscopic, Status: Active, Time: 18:34 12/22/2016, User: [email or web address], - Ordered for: MD Dominguez Joshua, - Entered by: MD Dominguez Joshua [facility] Dec 22, 2016 18:34, - Quantity: 1, Order Name: XR Chest 1 View Portable, Status: Active, Time: 18:34 12/22/2016, User: JACOBO, - Ordered for: MD Dominguez Joshua, - Entered by: MD Dominguez Joshua [facility] Dec 22, 2016 18:34, - Quantity: 1. MEDICATION ADMINISTRATION SUMMARY Drug Name: ciprofloxacin HCl oral, Dose Ordered: 250 mg, Route: Oral, Status: Ordered, Time: 19:36 12/22/2016, Detailed record available in Medication Service section. MEDICATION SERVICE (19:36 JACOBO) ciprofloxacin HCl oral: Order: ciprofloxacin HCl oral (ciprofloxacin HCl) - Dose: 250 mg : Oral Ordered by: Vinny Dominguez MD Entered by: Vinny Dominguez MD [facility] Dec 22, 2016 19:36 , &a-1R&a+25V*p+0X*p1128N*c152B*c15G*c2P*p-0X&a-25V&a+1RName: Valencia Hu : F[birth year] MedRec: [id number] AcctNum: [id number] Prepared: [facility] Dec 24, 2016 07:44 by Interface Page [address] [facility] EMERGENCY RECORD Acknowledged by: Mady Sainz RN Kelly Dec 22, 2016 19:36. HPI FALL ([facility] Dec 24, 2016 07:30 [facility]) CHIEF COMPLAINT: Patient presents for evaluation of Pt was seen in ER 3 days ago for right rib fracture from coughing. Has had a bad cough for 'some time'. Given codeine cough syrup and tramadol per family and since then has been a little more confused than usual. Also a little more generalized weakness. No other symptoms. Pt was found on the floor by family today after she slid down onto the gorund getting out of bed. Landed flat on her back and reports no injury or pain. Pt lay there for 1-2 hours before being found. HISTORIAN: History provided by patient, History provided by patient's family. LOCATION: No localizing symptoms. ASSOCIATED WITH: No associated contusion(s), No associated laceration(s), No associated deformity, Associated with Chronic right low back pain unchanged., No associated blurred vision, No associated inability to ambulate, No associated inability to bear weight, No associated headache, No associated loss of consciousness, No associated neurological symptoms prior to arrival, No associated numbness, No associated syncope, No associated vomiting. EXACERBATED BY: Patient's condition exacerbated by nothing. RELIEVED BY: Patient's condition relieved by nothing. ROS ([facility] Dec 24, 2016 07:33 [facility]) CONSTITUTIONAL: Historian denies chills, denies fever. ENT: Historian denies rhinorrhea, denies sore throat. CARDIOVASCULAR: Historian denies chest pain. RESPIRATORY: Historian reports cough, denies shortness of breath, denies sputum. GI: Historian denies abdominal pain, denies diarrhea, denies nausea, denies vomiting. GENITOURINARY FEMALE: Historian denies dysuria, denies frequency, denies hematuria. MUSCULOSKELETAL: Historian denies neck pain, Chronic right low back pain. SKIN: Historian denies rash, denies skin changes. NEUROLOGIC: Historian denies dizziness, denies headache, denies paralysis, denies paresthesias, denies sensory changes. PAST MEDICAL HISTORY MEDICAL HISTORY: Flu vaccine up to date, Pneumococcal vaccine up to date, Past medical history includes history of hyperlipidemia, Past medical history includes history of hypertension. (18:16 LHAL) FEMALE SURGICAL HISTORY: Surgical history of cholecystectomy, Surgical history of hysterectomy, Surgical history of orthopedic surgery, BILATERAL KNEE. Both Shoulders, rotator cuff. (18:16 LHAL) SOCIAL HISTORY: Patient denies alcohol use, Patient denies drug use, Patient has no smoking history. (18:16 LHAL) &a-1R&a+25V*p+0X*y3604S*c152B*c15G*c2P*p-0X&a-25V&a+1RName: Valencia Hu : F[birth year] MedRec: [id number] AcctNum: [id number] Prepared: [facility] Dec 24, 2016 07:44 by Interface Page [address] [facility] EMERGENCY RECORD NOTES: Nursing records reviewed, Agree with nursing records. ([facility] Dec 24, 2016 07:35 JL) PHYSICAL EXAM ([facility] Dec 24, 2016 07:33 JLOY) CONSTITUTIONAL: Vital signs reviewed, Patient appears non toxic, Patient alert and oriented to person, place and time, PT fully oriented and no signs of confusion on exam but family reports her responses aren't as fast as usual. HEAD: Head exam included findings of head atraumatic, normocephalic. EYES: Eye exam included findings of eyelids normal to inspection, Pupils equally round and reactive to light, Extraocular muscles intact, Conjunctiva normal. ENT: Pharynx exam normal, Uvula exam normal, Tonsil exam normal, Mouth exam normal, mucous membranes moist. NECK: Neck exam included findings of normal range of motion, Trachea midline, no tenderness, no abrasions, no contusions, no ecchymosis. RESPIRATORY CHEST: Respiratory exam included findings of no respiratory distress, Breath sounds clear, No wheezing, No rales, No rhonchi, Chest exam included findings of chest movement symmetrical, Tenderness, mild, to the right anterior chest. CARDIOVASCULAR: Cardiovascular exam included findings of heart rate regular rate and rhythm, Heart sounds normal. ABDOMEN FEMALE: Abdominal exam included findings of abdomen nontender, Bowel sounds normal. BACK: Back exam included findings of normal inspection, range of motion normal, Tenderness, paraspinal to the right lower, No midline tenderness. UPPER EXTREMITY: Upper extremity exam included findings of inspection normal, range of motion normal, Radial pulse normal, no cyanosis, no clubbing, no edema. NEURO: Neuro exam findings include patient oriented to person, place and time, Lincoln coma scale 15, Speech normal. SKIN: Skin exam included findings of skin warm, dry, and normal in color, no rash. PSYCHIATRIC: Normal affect. EVENTS TRANSFER: Triage to Emergency Emergency Room -02. (Kelly Dec 22, 2016 18:12 LHAL) Removed from Emergency Emergency Room -02. (20:06 EPIE) DOCTOR NOTES ([facility] Dec 24, 2016 07:36 JLOY) TEXT: Possible UTI but symptoms likely related to codeine or tramadol side effects. Pt also started amitriptyline 3 days ago which could account for her symptoms. Will hold these new meds. PROBLEM LIST No recorded problems &a-1R&a+25V*p+0X*n6365U*c152B*c15G*c2P*p-0X&a-25V&a+1RName: Valencia Hu : F[birth year] MedRec: [id number] AcctNum: [id number] Prepared: [facility] Dec 24, 2016 07:44 by Interface Page [address] [facility] EMERGENCY RECORD DIAGNOSIS (19:37 JLOY) FINAL: PRIMARY: UTI, ADDITIONAL: Altered mental status. DISPOSITION PATIENT: Disposition Type: Discharge, Disposition: *Discharge Home. (19:37 JLOY) Patient left the department. (20:06 EPIE) INSTRUCTION (19:39 JLOY) DISCHARGE: UTI CYSTITIS FEMALE ADULT, MEDICATION REACTION OTHER. FOLLOWUP: Jamey BARLOW., Chong OTT, [facility], [address] [place] [id number], [id number], Follow up with Primary Care Physician in 5 days. PRESCRIPTION (19:36 JLOY) ciprofloxacin HCl oral: TABLET : 250 mg : ORAL : Quantity: 250 Unit: mg Route: ORAL Schedule: 2 times a day Dispense: 5 days May substitute. Refills: No Refills . NOTES: No Refills. IMAGING (20:07 EPIE) *DISCHARGE INSTRUCTIONS RECEIPT: Image captured from scanner. *SUPPLY CHARGE SHEET: Image captured from scanner. ADMIN DIGITAL SIGNATURE: TONI Cartwright, Marcy. (18:48 [facility]) MD Dominguez Joshua. ([facility] Dec 24, 2016 07:35 [facility]) MD Dominguez Joshua. ([facility] Dec 24, 2016 07:37 [facility]) RESULTS (19:27 [facility]) LABORATORY: Urinalysis w/ Rflx Microscopic Collection DT: MonDec 22, 2016 18:54, Color Yellow , Range (Yellow), Clarity HAZY , Range (Clear), Specific Lula, Urine 1.015 , Range (1.005-1.030), pH, Urine 5.5 , Range (5.0-9.0), *Leukocyte Moderate - H , Range (Negative), Nitrite Negative , Range (Negative), Protein, Urine (Dipstick) Negative mg/dL, Range (Neg-Trace), Glucose, Urine (Dipstick) Negative mg/dL, Range (Negative), Ketone, Urine Negative mg/dL, Range (Negative), Urobilinogen 0.2 mg/dL, Range (0.2-1.0), Bilirubin Negative , Range (Negative), Blood, Urine Negative , Range (Negative). Comprehensive Metabolic Panel Collection DT: MonDec 22, 2016 18:54, *Sodium 135 - L mmol/L, Range (136-145), *Potassium 3.2 - L mmol/L, Range (3.5-5.1), &a-1R&a+25V*p+0X*r9474Z*c152B*c15G*c2P*p-0X&a-25V&a+1RName: Valencia Hu : F86 MedRec: [id number] AcctNum: [id number] Prepared: MonDec 24, 2016 07:44 by Interface Page [address] [facility] EMERGENCY RECORD Chloride 103 mmol/L, Range (98-107), *Carbon Dioxide 21 - L mmol/L, Range (23-31), Anion Gap 14 mmol/L, Range (10-20), *BUN (Urea Nitrogen) 33 - H mg/dL, Range (9.8-20.1), *Creatinine 1.40 - H mg/dL, Range (0.6-1.1), Estimated GFR-MDRD 36 , Reference Range for Estimated GFR: Greater than 90, mL/min/1.73 m2 NOTE: The MDRD equation has not been validated for use, with the elderly (over 70 years of age), women, patients with, serious comorbid condition or persons with extremes of body size, muscle, mass, or nutritional status. , *Glucose 121 - H mg/dL, Range (83-110), Calcium 8.9 mg/dL, Range (7.8-10.44), Bilirubin, Total 0.2 mg/dL, Range (0.2-1.2), Protein, Total 6.1 g/dL, Range (5.8-8.1), NOTE: Plasma values are generally 0.3 to 0.5 g/dL higher than serum values, due to the presence of fibrinogen. , Albumin 3.6 g/dL, Range (3.4-4.8), Globulin 2.5 g/dL, Range (2.4-3.5), Alb/Glob Ratio 1.4 g/dL, Range (1.2-2.2), Alkaline Phosphatase 89 U/L, Range (40-150), AST (SGOT) 22 U/L, Range (5-34), ALT (SGPT) 12 U/L, Range (0-55). CBC with Differential Collection DT: Kelly Dec 22, 2016 18:54, White Blood Cell (WBC) Count 9.5 thou/uL, Range (4.8-10.8), *Red Blood Cell (RBC) Count 4.03 - L mill/uL, Range (4.20-5.40), Hemoglobin 12.5 g/dL, Range (12.0-16.0), Hematocrit 36.9 %, Range (36.0-47.0), Mean Corpuscular Volume 91.4 fl, Range (81.0-99.0), Mean Corpuscular Hemoglobin 31.0 pg, Range (27.0-31.0), Mean Corpuscular HGB CONC 33.9 g/dL, Range (32.0-36.0), *RBC Distribution Width 11.4 - L %, Range (11.5-14.5), Platelet Count 264 thou/uL, Range (130-400), *Mean Platelet Volume 7.0 - L fL, Range (7.4-10.4), %Neutrophils 67.1 %, Range (42.0-75.0), %Lymphocytes 23.6 %, Range (21.0-51.0), %Monocytes 7.1 %, Range (0.0-10.0), %Eosinophils 1.5 %, Range (0.0-10.0), %Basophils 0.7 %, Range (0.0-1.0), #Neutrophils 6.4 thou/uL, Range (1.40-6.50), #Lymphocytes 2.2 thou/uL, Range (1.20-3.40), *#Monocytes 0.7 - H thou/uL, Range (0.11-0.59), #Eosinphils 0.1 thou/uL, Range (0.0-0.7), #Basophils 0.1 thou/uL, Range (0.0-0.2). Harrison: ROSALBA=TONI Lee, Irish FLORESI=VIDYA Hernandez, Radhames EPINikos=TONI Sainz, Mady CENTENO=MD Alberto, Vinny LUCERO=TONI Cartwright, Marcy &a-1R&a+25V*p+0X*v5247W*c152B*c15G*c2P*p-0X&a-25V&a+1RName: Valencia Hu : F[birth year] MedRec: [id number] AcctNum: [id number] Prepared: Sat Dec 24, 2016 07:44 by Interface Page [address] [facility] MEDICATION RECONCILIATION You were seen in the Emergency Department on: MonDec 22, 2016 KNOWN ALLERGIES No Known Drug Allergies HOME MEDICATIONS CONTINUE PRESCRIBED aspirin : TABLET : Strength - 81 mg : ORAL Continue as prescribed Patient had been takin tab(s) Oral once a day. atenolol : TABLET : Strength - 25 mg : ORAL Continue as prescribed Patient had been takin tab(s) Oral once a day (at bedtime). azelastine : AEROSOL, SPRAY WITH PUMP (ML) : Strength - 205.5 mcg (0.15 %) : NASAL Continue as prescribed Patient had been takin spray(s) Intranasal once a day. fluticasone : SPRAY, SUSPENSION : Strength - 50 mcg : NASAL Continue as prescribed Patient had been takin spray(s) Intranasal 2 times a day. gabapentin : CAPSULE : Strength - 300 mg : ORAL Continue as prescribed Patient had been takin tab(s) Oral. Comment: unknown. lisinopril-hydrochlorothiazide : TABLET : Strength - 20 mg-12.5 mg : ORAL Continue as prescribed Patient had been takin tab(s) Oral once a day (in the morning). lovastatin : TABLET : Strength - 20 mg : ORAL Continue as prescribed Patient had been takin tab(s) Oral once a day (in the morning). Multiple Vitamin, Womens : TABLET : ORAL Continue as prescribed Patient had been takin tab(s) Oral once a day. &a-1R&a+25V*p+0X*z9784W*c202B*c15G*c2P*p-0X&a-25V&a+1R Name: Valencia Hu : 1930 F86 MedRec: [id number] AcctNum: [id number] Prepared: Sat Dec 24, 2016 07:[address] [facility] MEDICATION RECONCILIATION multivitamin : CAPSULE : ORAL Continue as prescribed Patient had been takin cap(s) Oral once a day. pramipexole : TABLET : Strength - 0.25 mg : ORAL Continue as prescribed Patient had been takin tab(s) Oral once a day (at bedtime). Vitamin D3 : CAPSULE : Strength - 1,000 unit : ORAL Continue as prescribed Patient had been takin cap(s) Oral once a day. STOP TAKING THIS MEDICATION Cheratussin AC : LIQUID (ML) : Strength - 100 mg-10 mg/5 mL : ORAL Stop taking this medication Patient had been takin mL Oral every 8 hours PRN. Comment: take 3 times a day for cough as needed. traMADol : TABLET : Strength - 50 mg : ORAL Stop taking this medication Patient had been takin tab(s) Oral every 8 hours PRN. PRESCRIPTIONS (1) &a-1R&a+25V*p+0X*c3012R*c202B*c15G*c2P*p-0X&a-25V&a+1R Name: Valencia Hu : [id number] MedRec: [id number] AcctNum: [id number] Prepared: Navin Dec 24, 2016 07:44 by Interface pMD TIP
--- NOTE | 2016-12-22 21:15 | RAD ---
PORTABLE CHEST 12/22/16 HISTORY: Altered mental status, drug overdose. Heart size is borderline. There are atherosclerotic changes of the aorta. The lungs are clear of inf iltrates. The bones are demineralized. IMPRESSION: Borderline heart size. POS: [facility]
== END 2016-12-22 19:55 | disposition home or self-care (01) ==
LOC: NAV ERS 18:06
DX: N39.0 Urinary tract infection, site not specified (principal); I10 Essential (primary) hypertension; E78.5 Hyperlipidemia, unspecified; Z79.82 Long term (current) use of aspirin; Z79.891 Long term (current) use of opiate analgesic; Z79.899 Other long term (current) drug therapy
CPT/HCPCS: 51701; 71010; 80053; 81003; 81015; 85025; 87086; A4353

== ENCOUNTER 2017-01-09 09:10 | Outpatient (CLI) | payer MEDICARE, OTHER ==
[2017-01-09 12:52] LABS: ALT (SGPT) 9 U/L (0-55); AST (SGOT) 19 U/L (5-34); Alkaline Phosphatase 89 U/L (40-150); Anion Gap 15 mmol/L (10-20); BUN (Urea Nitrogen) 20 mg/dL (9.8-20.1); Bilirubin, Direct 0.2 mg/dL (0.1-0.3); Bilirubin, Total 0.6 mg/dL (0.2-1.2); Calc. Creatinine Clearance 0 mL/min (70-130); Calcium 9.7 mg/dL (7.8-10.44); Carbon Dioxide 26 mmol/L (23-31); Chloride 102 mmol/L (98-107); Estimated GFR-MDRD 62; LDL Cholesterol, Calculated 128 mg/dL; Protein, Total 6.4 g/dL (5.8-8.1)
[2017-01-09 12:53] LABS: #Basophils 0.1 thou/uL (0.0-0.2); #Eosinphils 0.1 thou/uL (0.0-0.7); #Lymphocytes 3.2 thou/uL (1.20-3.40); #Monocytes 0.5 thou/uL (0.11-0.59); #Neutrophils 3.6 thou/uL (1.40-6.50); %Basophils 1.2 % (0.0-1.0); %Eosinophils 1.3 % (0.0-10.0); %Lymphocytes 43.4 % (21.0-51.0); %Monocytes 6.2 % (0.0-10.0); Hematocrit 42.4 % (36.0-47.0); Mean Platelet Volume 5.5 fL (7.4-10.4); Red Blood Cell (RBC) Count 4.58 mill/uL (4.20-5.40); White Blood Cell (WBC) Count 7.5 thou/uL (4.8-10.8)
[2017-01-09 13:01] LABS: Bilirubin Negative (Negative); Blood, Urine Negative (Negative); Glucose, Urine (Dipstick) Negative (Negative); Ketone, Urine Negative (Negative); Nitrite Negative (Negative); Protein, Urine (Dipstick) Negative (Neg-Trace); Urobilinogen 0.2 mg/dL (0.2-1.0)
[2017-01-09 13:21] LABS: Bacteria/HPF Rare-Few HPF (None Seen); RBC/HPF None Seen HPF (0-3)
[2017-01-09 13:43] LABS: Hemoglobin A1c 5.3 % (4.0-6.0)
== END 2017-01-09 09:11 ==
LOC: NAVSJIPCSP 09:10
PROVIDERS: ATTEND Family Medicine
DX: J44.9 Chronic obstructive pulmonary disease, unspecified (principal); I10 Essential (primary) hypertension; R53.1 Weakness; E78.5 Hyperlipidemia, unspecified; Z79.899 Other long term (current) drug therapy
CPT/HCPCS: 36415; 80048; 80061; 80076; 81003; 81015; 83036; 84443; 85025

== ENCOUNTER 2017-02-09 10:31 | Emergency (ER) | payer MEDICARE, OTHER ==
[2017-02-09] MEDS ORDERED: methylPREDNISolone Sod Succ/PF 125 MG/2 ML VIAL ONE (11:09)
[2017-02-09] MEDS ORDERED: Morphine Sulfate 2 MG/ML SYRINGE ONE (11:09)
== END 2017-02-09 12:10 | disposition home or self-care (01) ==
LOC: NAV ERS 10:31
DX: M54.42 Lumbago with sciatica, left side (principal); I10 Essential (primary) hypertension; E78.5 Hyperlipidemia, unspecified; Z79.82 Long term (current) use of aspirin; Z79.899 Other long term (current) drug therapy
CPT/HCPCS: 96372; J2270; J2930

== ENCOUNTER 2017-02-14 11:54 | Emergency (ER) | payer MEDICARE, OTHER ==
[2017-02-14] MEDS ORDERED: Ondansetron HCl/PF 4 MG/2 ML Vial ONE (12:31)
[2017-02-14 12:32] LABS: Bilirubin Negative (Negative); Blood, Urine Negative (Negative); Clarity Slightly Cloudy (Clear); Glucose, Urine (Dipstick) Negative (Negative); Leukocyte Large (Negative); Nitrite Positive (Negative); Protein, Urine (Dipstick) Negative (Neg-Trace); Specific Gravity, Urine 1.015 (1.005-1.030); Urobilinogen 0.2 mg/dL (0.2-1.0); pH, Urine 7.5 (5.0-9.0)
[2017-02-14 12:39] LABS: Bacteria/HPF 1+ HPF (None Seen); RBC/HPF None Seen HPF (0-3)
[2017-02-14 12:40] LABS: Other Microscopic Description NO
[2017-02-14] MEDS ORDERED: Sodium Chloride 0.9% 500 ML ONE (12:53)
[2017-02-14] MEDS ORDERED: cefTRIAXone\\ROCEPHIN 1 GM VIAL ONE (12:53)
[2017-02-14] MEDS ORDERED: Sodium Chloride 0.9% 100 ML ONE (12:54)
== END 2017-02-14 14:34 | disposition home or self-care (01) ==
LOC: NAV ERS 11:54
DX: M54.5 Low back pain (principal); N39.0 Urinary tract infection, site not specified; E78.5 Hyperlipidemia, unspecified; I10 Essential (primary) hypertension; Z79.82 Long term (current) use of aspirin; Z79.899 Other long term (current) drug therapy
CPT/HCPCS: 81003; 81015; 96361; 96365; 96375; J0696; J2270; J2405; J7050

== ENCOUNTER 2017-04-20 12:45 | Outpatient (CLI) | payer MEDICARE, MEDICAID ==
--- NOTE | 2017-04-20 13:59 | RAD ---
TWO VIEWS OF THE LUMBOSACRAL SPINE: COMPARISON: MRI of the lumbar spine 04/18/17. HISTORY: Low back pain and spondylolisthesis. FINDINGS: Flexion, extension, and lateral views of the lumbosacral spine were submitted for interpretation. T here is grade I anterolisthesis of L5 on S1. Alignment is unchanged with flexion and extension. Th e vertebral bodies demonstrate height without evidence of fracture. Vascular calcifications are see n in the aorta. IMPRESSION: Spondylolisthesis of L5 on S1 with unchanged alignment with bending. POS: [facility]
== END 2017-04-20 12:46 | disposition home or self-care (01) ==
LOC: NAV RAD 12:45
PROVIDERS: ATTEND Specialist
DX: M43.17 Spondylolisthesis, lumbosacral region (principal)
CPT/HCPCS: 72100

== ENCOUNTER 2017-05-08 09:09 | Outpatient (CLI) | payer MEDICARE, OTHER ==
[2017-05-08 12:32] LABS: #Basophils 0.1 thou/uL (0.0-0.2); #Eosinphils 0.1 thou/uL (0.0-0.7); #Lymphocytes 2.9 thou/uL (1.20-3.40); #Monocytes 0.4 thou/uL (0.11-0.59); #Neutrophils 2.7 thou/uL (1.40-6.50); %Basophils 1.4 % (0.0-1.0); %Eosinophils 1.2 % (0.0-10.0); %Lymphocytes 47.2 % (21.0-51.0); %Monocytes 6.1 % (0.0-10.0); %Neutrophils 44.2 % (42.0-75.0); Hemoglobin 13.1 g/dL (12.0-16.0); Mean Corpuscular HGB CONC 32.1 g/dL (32.0-36.0); Mean Corpuscular Hemoglobin 29.5 pg (27.0-31.0); Mean Corpuscular Volume 91.9 fl (81.0-99.0); Mean Platelet Volume 5.5 fL (7.4-10.4); Platelet Count 270 thou/uL (130-400); Red Blood Cell (RBC) Count 4.43 mill/uL (4.20-5.40); White Blood Cell (WBC) Count 6.1 thou/uL (4.8-10.8)
[2017-05-08 13:02] LABS: ALT (SGPT) 14 U/L (8-55); AST (SGOT) 25 U/L (5-34); Albumin 3.9 g/dL (3.4-4.8); Alkaline Phosphatase 70 U/L (40-150); Anion Gap 16 mmol/L (10-20); BUN (Urea Nitrogen) 23 mg/dL (9.8-20.1); Bilirubin, Direct 0.2 mg/dL (0.1-0.3); Bilirubin, Total 0.6 mg/dL (0.2-1.2); Calc. Creatinine Clearance 0 mL/min (70-130); Calcium 9.6 mg/dL (7.8-10.44); Carbon Dioxide 24 mmol/L (23-31); Cardiac Risk 3.6 (Less than 4.5); Chloride 102 mmol/L (98-107); Cholesterol 214 mg/dl (< 200 Desired); Estimated GFR-MDRD 51; Glucose 86 mg/dL (83-110); HDL Cholesterol 59 mg/dL (>60 Neg Risk); LDL Cholesterol, Calculated 131 mg/dL; Potassium 4.2 mmol/L (3.5-5.1); Protein, Total 6.2 g/dL (6.0-8.3); Sodium 138 mmol/L (136-145); Triglycerides 121 mg/dL (Less than 150)
[2017-05-08 14:17] LABS: Hemoglobin A1c 5.4 % (4.0-6.0)
== END 2017-05-08 09:10 | disposition home or self-care (01) ==
LOC: NAVSJIPCSP 09:09
PROVIDERS: ATTEND Family Medicine
DX: E78.5 Hyperlipidemia, unspecified (principal); I10 Essential (primary) hypertension; J44.9 Chronic obstructive pulmonary disease, unspecified; K21.9 Gastro-esophageal reflux disease without esophagitis; J30.9 Allergic rhinitis, unspecified; R53.1 Weakness; Z79.899 Other long term (current) drug therapy
CPT/HCPCS: 36415; 80048; 80061; 80076; 83036; 84443; 85025

== ENCOUNTER 2018-02-28 11:03 | Emergency (ER) | payer MEDICARE, OTHER ==
[2018-02-28 12:34] LABS: #Basophils 0.1 thou/uL (0.0-0.2); #Lymphocytes 2.2 thou/uL (1.20-3.40); #Monocytes 0.4 thou/uL (0.11-0.59); #Neutrophils 4.7 thou/uL (1.40-6.50); %Basophils 0.7 % (0.0-1.0); %Eosinophils 0.6 % (0.0-10.0); %Monocytes 5.7 % (0.0-10.0); %Neutrophils 63.1 % (42.0-75.0); Mean Corpuscular HGB CONC 32.7 g/dL (32.0-36.0); Mean Corpuscular Hemoglobin 29.7 pg (27.0-31.0); Mean Corpuscular Volume 90.9 fl (81.0-99.0); Mean Platelet Volume 8.7 fL (7.4-10.4); Platelet Count 80 thou/uL (130-400); RBC Distribution Width 11.8 % (11.5-14.5); Red Blood Cell (RBC) Count 4.36 mill/uL (4.20-5.40); White Blood Cell (WBC) Count 7.4 thou/uL (4.8-10.8)
[2018-02-28 12:35] LABS: MDiff Complete? YES; PLT Morphology Comment Appears Adequate; Platelet Clumps MARKED
[2018-02-28 12:42] LABS: PTT 26.4 SEC (22.9-36.1); Prothrombin Time 13.1 SEC (12.0-14.7)
[2018-02-28 12:43] LABS: ALT (SGPT) 14 U/L (8-55); AST (SGOT) 22 U/L (5-34); Albumin 3.6 g/dL (3.4-4.8); Alkaline Phosphatase 59 U/L (40-150); Anion Gap 14 mmol/L (10-20); BUN (Urea Nitrogen) 18 mg/dL (9.8-20.1); Bilirubin, Total 0.4 mg/dL (0.2-1.2); Calc. Creatinine Clearance 0 mL/min (70-130); Calcium 9.5 mg/dL (7.8-10.44); Carbon Dioxide 26 mmol/L (23-31); Chloride 105 mmol/L (98-107); Estimated GFR-MDRD 55; Globulin 2.6 g/dL (2.4-3.5); Glucose 102 mg/dL (83-110); Potassium 4.1 mmol/L (3.5-5.1); Protein, Total 6.2 g/dL (6.0-8.3); Sodium 141 mmol/L (136-145)
[2018-02-28 14:04] LABS: Bilirubin Negative (Negative); Blood, Urine Trace (Negative); Glucose, Urine (Dipstick) Negative (Negative); Leukocyte Large (Negative); Nitrite Negative (Negative); Protein, Urine (Dipstick) Negative (Neg-Trace); Urobilinogen 0.2 mg/dL (0.2-1.0); pH, Urine 5.5 (5.0-9.0)
[2018-02-28 14:07] LABS: Clarity Hazy (Clear)
[2018-02-28 14:11] LABS: Bacteria/HPF 3+ HPF (None Seen); RBC/HPF 0-3 HPF (0-3); Squamous Epithelial 0-3 HPF (0-3); WBC/HPF 21-50 HPF (0-3)
== END 2018-02-28 15:24 | disposition short-term general hospital (02) ==
LOC: NAV ERS 11:03
DX: K92.2 Gastrointestinal hemorrhage, unspecified (principal); J44.9 Chronic obstructive pulmonary disease, unspecified; E78.5 Hyperlipidemia, unspecified; I10 Essential (primary) hypertension; Z87.891 Personal history of nicotine dependence; Z79.891 Long term (current) use of opiate analgesic; Z79.82 Long term (current) use of aspirin; Z79.899 Other long term (current) drug therapy
CPT/HCPCS: 80053; 81003; 81015; 82274; 85025; 85610; 85730; 87086; 99285

== ENCOUNTER 2018-10-16 13:30 | Emergency (ER) | payer MEDICARE, MEDICAID ==
[2018-10-16] MEDS ORDERED: Acetaminophen 325 MG TAB ONE (14:17)
--- NOTE | 2018-10-16 15:04 | RAD ---
RIGHT FOOT RADIOGRAPHS THREE VIEWS: Date: 10-16-18 Provided Clinical History: Right foot pain status post injury. FINDINGS: Diffuse regional osteopenia. Bunion formation. No evidence for fracture or other acute osseous abnorm ality. If there is persistent clinical concern, conservative management and follow up imaging are adv ised. IMPRESSION: As above. POS: [facility]
--- NOTE | 2018-10-16 15:26 | CT ---
CT BRAIN NONCONTRAST: DATE: 10-16-18 TIME: 2:27 P.M. HISTORY: 88-year-old female on anticoagulation therapy, status post-acute head trauma from fall. FINDINGS: There is no midline shift or any other mass effect. There is no evidence of acute intracranial hemor rhage, large cortical infarct, obstructive hydrocephalus, or extraaxial fluid collection. The calvar ium is intact. There is diffuse parenchymal volume loss. There are low attenuation areas in the whi te matter. These are nonspecific, but in a patient of this age, they are probably chronic ischemic w yu matter changes due to microvascular atherosclerosis. There is almost total opacification of the right maxillary sinus, filled with soft tissue density material. In the center of this opacified maxi llary sinus, there is an irregularly shaped calcific density suggestive of fungal colonization. [place] us mural thickening of the right maxillary sinus indicates long standing, chronic sinusitis. IMPRESSION: 1) No acute intracranial findings. 2) Involutional changes and severe chronic ischemic white matter changes. 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 carmencita POS: [facility]
--- NOTE | 2018-10-16 15:30 | CT ---
CT CERVICAL SPINE NONCONTRAST: HISTORY: 88-year-old female status post-acute cervical trauma from fall. FINDINGS: There are no jumped or perched facets. There is no evidence of acute fracture. The vertebral body h eights are maintained. There is no prevertebral soft tissue swelling. There is multilevel degenerat jimbo facet disease of varying degrees bilaterally, most severe in the left upper and mid-levels. There is exaggerated lordosis. There is anterior metallic plate with upper screws in the C4 vertebral body and the lower screws traversing the anterior portion of the C5-6 disc space, with distal tips embedd ed into the superior endplate of C6. There is ankylosis between the C4 and C5 vertebral bodies by bon e graft at its obliterated disc space. Exaggerated lordosis and the anterior metallic plate and screw s, anteriorly displace the right posterior pharyngeal wall (is there dysphagia?). There is severe dis c space narrowing with endplate irregularity at C6-7. There is diffuse osteopenia. IMPRESSION: 1) Cervical spondylosis. 2) No evidence of acute fracture or acute traumatic subluxation. 3) Status post anterior cervical diskectomy and fusion. carmencita POS: [facility]
== END 2018-10-16 15:44 | disposition home or self-care (01) ==
LOC: NAV ERS 13:30
DX: S90.111A Contusion of right great toe without damage to nail, initial encounter (principal); J44.9 Chronic obstructive pulmonary disease, unspecified; E78.5 Hyperlipidemia, unspecified; I10 Essential (primary) hypertension; F03.90 Unspecified dementia, unspecified severity, without behavioral disturbance, psychotic disturbance, mood disturbance, and anxiety; Z87.891 Personal history of nicotine dependence; Z79.899 Other long term (current) drug therapy; Z79.82 Long term (current) use of aspirin; W19.XXXA Unspecified fall, initial encounter
CPT/HCPCS: 70450; 72125

== ENCOUNTER 2019-08-07 11:36 | Emergency (ER) | payer MEDICARE, OTHER ==
[2019-08-07 12:27] LABS: #Basophils 0.1 thou/uL (0.0-0.2); #Eosinphils 0.1 thou/uL (0.0-0.7); #Lymphocytes 2.6 thou/uL (1.20-3.40); #Monocytes 0.5 thou/uL (0.11-0.59); %Basophils 1.1 % (0.0-1.0); %Eosinophils 1.1 % (0.0-10.0); %Lymphocytes 31.2 % (21.0-51.0); %Neutrophils 60.7 % (42.0-75.0); Hemoglobin 13.9 g/dL (12.0-16.0); Mean Corpuscular HGB CONC 31.1 g/dL (32.0-36.0); Mean Corpuscular Volume 89.8 fL (78.0-98.0); Mean Platelet Volume 6.4 fL (7.4-10.4); Platelet Count 314 thou/uL (130-400); RBC Distribution Width 13.9 % (11.5-14.5); Red Blood Cell (RBC) Count 4.96 mill/uL (4.20-5.40); White Blood Cell (WBC) Count 8.2 thou/uL (4.8-10.8)
[2019-08-07 12:47] LABS: ALT (SGPT) 13 U/L (8-55); AST (SGOT) 29 U/L (5-34); Albumin 4.3 g/dL (3.4-4.8); Alkaline Phosphatase 75 U/L (40-150); Anion Gap 19 mmol/L (10-20); BUN (Urea Nitrogen) 18 mg/dL (9.8-20.1); Bilirubin, Total 0.2 mg/dL (0.2-1.2); Calc. Creatinine Clearance 0 mL/min (70-130); Calcium 10.5 mg/dL (7.8-10.44); Carbon Dioxide 23 mmol/L (23-31); Chloride 104 mmol/L (98-107); Estimated GFR-MDRD 50; Globulin 3.1 g/dL (2.4-3.5); Glucose 98 mg/dL (83-110); Protein, Total 7.4 g/dL (6.0-8.3); Sodium 142 mmol/L (136-145)
--- NOTE | 2019-08-07 13:16 | RAD ---
PORTABLE CHEST ONE VIEW: 08/07/19 at 12:24 p.m. HISTORY: Shortness of breath. FINDINGS/IMPRESSION: Comparison made to exam of 12/10/18. The heart size appears prominent. The aorta is tortuous. The lungs are well expanded without focal ar eas of consolidation, pneumothoraces, ashlee pulmonary edema or pleural effusions. POS: [facility]
[2019-08-07] MEDS ORDERED: methylPREDNISolone Sod Succ/PF 125 MG/2 ML VIAL ONE (13:17)
[2019-08-07] MEDS ORDERED: Aspirin Chewable 81 MG TAB ONE (13:17)
[2019-08-07] MEDS ORDERED: Furosemide 20 MG/2 ML VIAL ONE (13:17)
[2019-08-07 13:24] LABS: Bilirubin Negative (Negative); Blood, Urine Negative (Negative); Glucose, Urine (Dipstick) Negative (Negative); Leukocyte Moderate (Negative); Nitrite Negative (Negative); Protein, Urine (Dipstick) Negative (Neg-Trace); Urobilinogen 0.2 mg/dL (Less than 2)
[2019-08-07] MEDS ORDERED: Nitroglycerin 2% Ointment 1 INCH/1 GM Packet ONE (13:37)
[2019-08-07 13:38] LABS: Clarity SL HAZY (Clear)
[2019-08-07 13:39] LABS: Bacteria/HPF Rare-Few HPF (None Seen); RBC/HPF 0-3 HPF (0-3)
--- NOTE | 2019-08-07 14:21 | CT ---
CT Brain WO Con History: Trouble breathing. Dementia. Comparison: CT brain September 2018 Findings: No acute hemorrhage or infarct. No midline shift or mass effect. Ventricular size and extra -axial CSF spaces are normal. High-grade periventricular and deep white matter chronic microangiopathic changes. The calvarium is intact. Paranasal sinuses and mastoids are clear. Impression: 1. No acute intracranial abnormality. 2. Severe chronic microangiopathic changes.
== END 2019-08-07 14:38 | disposition short-term general hospital (02) ==
LOC: NAV ERS 11:36
DX: R06.00 Dyspnea, unspecified (principal); I10 Essential (primary) hypertension; R53.1 Weakness; F03.90 Unspecified dementia, unspecified severity, without behavioral disturbance, psychotic disturbance, mood disturbance, and anxiety; J44.9 Chronic obstructive pulmonary disease, unspecified; E78.5 Hyperlipidemia, unspecified; Z87.891 Personal history of nicotine dependence; Z79.899 Other long term (current) drug therapy; Z79.82 Long term (current) use of aspirin
CPT/HCPCS: 70450; 71045; 80053; 81003; 81015; 83880; 84484; 85025; 93005; 96374; 96375; J1940; J2930; J7620

== ENCOUNTER 2019-09-25 12:36 | Emergency (ER) | payer MEDICARE, OTHER ==
[2019-09-25 14:02] LABS: #Basophils 0.1 thou/uL (0.0-0.2); #Eosinphils 0.1 thou/uL (0.0-0.7); #Lymphocytes 2.8 thou/uL (1.20-3.40); #Monocytes 0.6 thou/uL (0.11-0.59); #Neutrophils 5.6 thou/uL (1.40-6.50); %Basophils 0.7 % (0.0-1.0); %Lymphocytes 30.4 % (21.0-51.0); %Monocytes 6.7 % (0.0-10.0); %Neutrophils 61.2 % (42.0-75.0); Hemoglobin 13.5 g/dL (12.0-16.0); Mean Corpuscular HGB CONC 32.3 g/dL (32.0-36.0); Mean Corpuscular Hemoglobin 29.8 pg (27.0-31.0); Mean Corpuscular Volume 92.2 fL (78.0-98.0); Mean Platelet Volume 6.5 fL (7.4-10.4); Platelet Count 283 thou/uL (130-400); RBC Distribution Width 13.1 % (11.5-14.5); Red Blood Cell (RBC) Count 4.53 mill/uL (4.20-5.40); White Blood Cell (WBC) Count 9.1 thou/uL (4.8-10.8)
--- NOTE | 2019-09-25 14:14 | RAD ---
EXAM: Chest one view: HISTORY: Dyspnea COMPARISON: 08/07/2019 FINDINGS: Stable appearing increased linear interstitial markings bilaterally probably representing a component of chronic lung disease. Heart size: Within normal limits. Lungs: Small new focus of parenchymal density in the right midlung zone possibly a small focus of pne umonia or pneumonitis. No evidence for confluent pneumonia, pleural effusion, acute edema, or pneumothorax, or other signifi cant acute process. IMPRESSION: Possible small focus of right midlung zone pneumonitis. Correlate clinically and consider treatment if indicated as well as short-term follow-up study in 3-4 weeks.
[2019-09-25 14:25] LABS: ALT (SGPT) 16 U/L (8-55); AST (SGOT) 18 U/L (5-34); Albumin 3.6 g/dL (3.4-4.8); Alkaline Phosphatase 57 U/L (40-110); Anion Gap 15 mmol/L (10-20); BUN (Urea Nitrogen) 26 mg/dL (9.8-20.1); Bilirubin, Total 0.4 mg/dL (0.2-1.2); Calc. Creatinine Clearance 0 mL/min (70-130); Calcium 10.1 mg/dL (7.8-10.44); Carbon Dioxide 31 mmol/L (23-31); Chloride 98 mmol/L (98-107); Estimated GFR-MDRD 42; Globulin 2.3 g/dL (2.4-3.5); Glucose 91 mg/dL (83-110); Potassium 3.9 mmol/L (3.5-5.1); Protein, Total 5.9 g/dL (6.0-8.3); Sodium 140 mmol/L (136-145)
[2019-09-25 14:32] LABS: CKMB 1.8 ng/mL (0-6.6)
[2019-09-25] MEDS ORDERED: Clindamycin 300 MG/2 ML VIAL ONE (15:03)
[2019-09-25] MEDS ORDERED: Aspirin Chewable 81 MG TAB ONE (15:03)
[2019-09-25] MEDS ORDERED: Clindamycin/D5W 900 mg/50 ml Premix Bag ONE (15:05)
[2019-09-25] MEDS ORDERED: Clindamycin/D5W 600 mg/50 ml Premix Bag ONE (15:10)
[2019-09-25 17:01] LABS: Bilirubin Negative (Negative); Blood, Urine Negative (Negative); Clarity Clear (Clear); Glucose, Urine (Dipstick) Negative (Negative); Leukocyte Large (Negative); Nitrite Negative (Negative); Protein, Urine (Dipstick) Trace mg/dL (Neg-Trace); Urobilinogen 0.2 mg/dL (Less than 2)
[2019-09-25 17:10] LABS: Bacteria/HPF 2+ HPF (None Seen); RBC/HPF None Seen HPF (0-3); Squamous Epithelial 0-3 HPF (0-3); WBC/HPF 0-3 HPF (0-3)
== END 2019-09-25 16:52 | disposition short-term general hospital (02) ==
LOC: NAV ERS 12:36
DX: R07.89 Other chest pain (principal); N28.9 Disorder of kidney and ureter, unspecified; L03.115 Cellulitis of right lower limb; R79.89 Other specified abnormal findings of blood chemistry; E78.5 Hyperlipidemia, unspecified; G47.30 Sleep apnea, unspecified; I11.0 Hypertensive heart disease with heart failure; I50.9 Heart failure, unspecified; F03.90 Unspecified dementia, unspecified severity, without behavioral disturbance, psychotic disturbance, mood disturbance, and anxiety; J44.9 Chronic obstructive pulmonary disease, unspecified; Z79.82 Long term (current) use of aspirin; Z79.899 Other long term (current) drug therapy
CPT/HCPCS: 71045; 80053; 81003; 81015; 82553; 83880; 84484; 85025; 87070; 87076; 87205; 93005; 96365; J3490

== ENCOUNTER 2019-11-02 14:36 | Emergency (ER) | payer MEDICARE, OTHER ==
[2019-11-02] MEDS ORDERED: Sodium Chloride For Inhalation 0.9% 3 ML NEB ONE (14:54)
[2019-11-02 15:16] LABS: Hemoglobin 12.2 g/dL (12.0-16.0); Mean Corpuscular HGB CONC 32.1 g/dL (32.0-36.0); Mean Corpuscular Volume 93.3 fL (78.0-98.0); Platelet Count 317 thou/uL (130-400); RBC Distribution Width 12.9 % (11.5-14.5); Red Blood Cell (RBC) Count 4.08 mill/uL (4.20-5.40); White Blood Cell (WBC) Count 10.7 thou/uL (4.8-10.8)
[2019-11-02 15:38] LABS: ALT (SGPT) 17 U/L (8-55); AST (SGOT) 18 U/L (5-34); Albumin 3.7 g/dL (3.4-4.8); Alkaline Phosphatase 62 U/L (40-110); Anion Gap 19 mmol/L (10-20); BUN (Urea Nitrogen) 27 mg/dL (9.8-20.1); Bilirubin, Total 0.4 mg/dL (0.2-1.2); Calc. Creatinine Clearance 0 mL/min (70-130); Calcium 9.7 mg/dL (7.8-10.44); Carbon Dioxide 31 mmol/L (23-31); Chloride 92 mmol/L (98-107); Estimated GFR-MDRD 49; Globulin 2.5 g/dL (2.4-3.5); Glucose 185 mg/dL (83-110); Potassium 3.7 mmol/L (3.5-5.1); Protein, Total 6.2 g/dL (6.0-8.3); Sodium 138 mmol/L (136-145)
[2019-11-02] MEDS ORDERED: Furosemide 20 MG/2 ML VIAL ONE (15:46)
[2019-11-02 15:49] LABS: Eosinophils 2 % (0-10); Lymphocytes 16 % (21-51); MDiff Complete? YES; Monocytes 1 % (0-10); Neutrophil 81 % (42-75); Platelet Morphology Comment Appears Adequate; RBC Morphology Normal
[2019-11-02] MEDS ORDERED: methylPREDNISolone Sod Succ/PF 125 MG/2 ML VIAL ONE (16:03)
--- NOTE | 2019-11-02 16:22 | RAD ---
Exam: Chest one view: HISTORY: Cough, congestion COMPARISON: 09/25/2019 FINDINGS: Cardiomegaly with some bilateral vascular congestion and some increased markings bilaterally. Bony de mineralization. No confluent pneumonia or acute edema. IMPRESSION: Overall stable chest.
== END 2019-11-02 17:00 | disposition short-term general hospital (02) ==
LOC: NAV ERS 14:36
DX: J96.90 Respiratory failure, unspecified, unspecified whether with hypoxia or hypercapnia (principal); I11.0 Hypertensive heart disease with heart failure; I50.9 Heart failure, unspecified; E78.5 Hyperlipidemia, unspecified; E78.00 Pure hypercholesterolemia, unspecified; F03.90 Unspecified dementia, unspecified severity, without behavioral disturbance, psychotic disturbance, mood disturbance, and anxiety; J44.9 Chronic obstructive pulmonary disease, unspecified; Z87.891 Personal history of nicotine dependence; Z79.899 Other long term (current) drug therapy; Z79.82 Long term (current) use of aspirin; Z79.51 Long term (current) use of inhaled steroids
CPT/HCPCS: 71045; 80053; 83605; 83880; 84484; 85025; 87804; 93005; 94640; 94644; 94660; 94760; 96374; 96375; J1940; J2930; J7620

== ENCOUNTER 2019-12-13 07:00 | Inpatient (IN) | payer MEDICARE, OTHER ==
--- NOTE | 2019-12-13 08:08 | RAD ---
Exam:Left hip 2 views HISTORY: Fall. Pain. COMPARISON: None FINDINGS: Diffuse bone demineralization. Moderate loss of hip joint space. Contour of the femoral hea d is maintained. No fracture. IMPRESSION: No fracture. If the patient is unable to bear weight, consider MRI or CT.
--- NOTE | 2019-12-13 08:11 | RAD ---
XR Knee Rt 4 View STANDARD History: Fall Comparison: None. Findings: No significant joint effusion. Satisfactory appearance right total knee arthroplasty and pa tellar resurfacing. Impression: Unremarkable examination of the knee.
--- NOTE | 2019-12-13 08:17 | RAD ---
XR Knee Lt 4 View STANDARD History: Fall. Pain Comparison: None. Findings: No acute fracture or malalignment. No significant joint effusion. Satisfactory appearance o f the total knee arthroplasty and patellar resurfacing. Impression: No acute abnormality.
--- NOTE | 2019-12-13 10:17 | CT ---
CT Lower Ext Lt WO Con History: Fall. Pain. Comparison: Radiograph same day Findings: No significant knee joint effusion. Mild atrophy of the semimembranosus muscle as well as o f the anterior compartment below the knee. Moderate vascular calcifications. Intact knee arthroplasty. No fracture is appreciated. Impression: Intact knee arthroplasty. No fracture.
--- NOTE | 2019-12-13 10:21 | CT ---
EXAM: CT pelvis without contrast HISTORY: Fall with pelvic and hip pain COMPARISON: None TECHNIQUE: Multiple contiguous axial images were obtained and a CT of the pelvis without contrast. Sa gittal and coronal reformats were performed. FINDINGS: No pelvic fractures are seen. No fracture of either proximal femur is seen. No significant degenerative changes are seen. Atherosclerotic calcifications are seen in the aorta. The patient is status post hysterectomy. Divert icula are seen in the sigmoid colon. The other visualized intrapelvic structures are unremarkable. The soft tissues surrounding the pelvis are unremarkable. IMPRESSION: No evidence of hip or pelvic fracture.
[2019-12-13] MEDS ORDERED: Acetaminophen 500 MG TAB ONE (11:04)
[2019-12-13 11:48] VITALS: BMI 37.7
[2019-12-13] MEDS ORDERED: Acetaminophen 500 MG TAB PO PRN (12:03)
[2019-12-13] MEDS ORDERED: Acetaminophen 325 MG TAB PO PRN (12:41)
[2019-12-13] MEDS ORDERED: Fluticasone Propionate Nasal Spray 16 gm Bottle NASAL PRN (12:43)
[2019-12-13] MEDS ORDERED: AZELASTINE HCL NASAL PRN (12:43)
[2019-12-13] MEDS ORDERED: Ventolin HFA Inhaler 60 PUFF INHALER INH PRN (12:43)
[2019-12-13] MEDS: Gabapentin 300 MG CAP PO SCH ×3 (13:27→21:44)
[2019-12-13] MEDS: Atenolol 25 MG TAB PO SCH ×2 (14:20→21:43)
[2019-12-13 16:29] LABS: #Basophils 0.1 thou/uL (0.0-0.2); #Eosinphils 0.1 thou/uL (0.0-0.7); #Lymphocytes 3.2 thou/uL (1.20-3.40); #Monocytes 0.7 thou/uL (0.11-0.59); #Neutrophils 3.2 thou/uL (1.40-6.50); %Basophils 1.4 % (0.0-1.0); %Monocytes 9.3 % (0.0-10.0); %Neutrophils 44.4 % (42.0-75.0); Hemoglobin 11.2 g/dL (12.0-16.0); Mean Corpuscular HGB CONC 30.9 g/dL (32.0-36.0); Mean Corpuscular Hemoglobin 29.5 pg (27.0-31.0); Mean Corpuscular Volume 95.5 fL (78.0-98.0); Mean Platelet Volume 6.6 fL (7.4-10.4); Platelet Count 338 thou/uL (130-400); RBC Distribution Width 12.6 % (11.5-14.5); Red Blood Cell (RBC) Count 3.79 mill/uL (4.20-5.40); White Blood Cell (WBC) Count 7.3 thou/uL (4.8-10.8)
[2019-12-13 16:43] LABS: ALT (SGPT) 13 U/L (8-55); AST (SGOT) 19 U/L (5-34); Albumin 3.5 g/dL (3.4-4.8); Alkaline Phosphatase 56 U/L (40-110); Anion Gap 13 mmol/L (10-20); BUN (Urea Nitrogen) 27 mg/dL (9.8-20.1); Bilirubin, Total 0.2 mg/dL (0.2-1.2); Calc. Creatinine Clearance 35 mL/min (70-130); Calcium 9.2 mg/dL (7.8-10.44); Carbon Dioxide 35 mmol/L (23-31); Chloride 97 mmol/L (98-107); Estimated GFR-MDRD 39; Globulin 2.3 g/dL (2.4-3.5); Glucose 120 mg/dL (83-110); Potassium 3.3 mmol/L (3.5-5.1); Protein, Total 5.8 g/dL (6.0-8.3); Sodium 142 mmol/L (136-145)
[2019-12-13] MEDS: Pramipexole Di-HCl 0.25 MG TAB PO SCH (21:43)
[2019-12-13] MEDS: Simvastatin 10 MG TAB PO SCH (21:43)
[2019-12-13] MEDS: Acetaminophen 500 MG TAB PO PRN (21:43)
--- NOTE | 2019-12-14 00:08 | HP ---
CHIEF COMPLAINT: Pain in the left knee after a fall. HISTORY OF PRESENT ILLNESS: The patient is a very pleasant 89-year-old white female with mild dementia who apparently was getting up from a chair to make coffee when her knees gave out, she fell to her left knee with no history of trauma to her head. She had no chest pain, shortness of breath, dizziness, or syncope. She called EMS and the family and was brought into the emergency room. She does have a history of bilateral knee replacements and feels like her knee is tender and swollen. However, her history is obtained somewhat from the family and old chart as she is very vague in her history at this time after being placed in the observation granger. Does not remember exactly the events of her admission. She does state now that her knee is nontender at rest, but does hurt on movement. She was given Tylenol in the emergency room, which she states has never helped her, although she does not know what medication has helped her. As mentioned above, she did have CT of her pelvis and knee showing no fractures and only the bilateral knee replacements. PAST MEDICAL HISTORY: History of hypertension, congestive heart failure, hyperlipidemia, dementia as mentioned above, COPD. PAST SURGICAL HISTORY: Positive for cholecystectomy, the above-mentioned bilateral knee replacement, and hysterectomy. MEDICATIONS: On admission included: 1. Atenolol 12.5 mg 3 times daily. 2. Lovastatin 20 mg daily. 3. Lisinopril hydrochlorothiazide 20/12.5 daily. 4. Gabapentin 300 nightly. 5. Aspirin 81 daily. 6. ProAir as needed. 7. Fluticasone nasal spray. 8. Astelin nasal spray as needed. 9. Pramipexole 0.5 mg at bedtime. ALLERGIES: SHE HAS HISTORY OF ALLERGIES WITH RAGLAN AND METHYLPHENIDATE. SHE APPARENTLY LIVES ALONE. SHE IS NOT TO BE RESUSCITATED. REVIEW OF SYSTEMS: HEENT: She denies any headaches, dizziness, or syncope. CARDIOVASCULAR: She denies any chest pain, orthopnea, paroxysmal nocturnal dyspnea, or edema. GASTROINTESTINAL: She denies any nausea, vomiting, diarrhea, constipation, or abdominal pain. PULMONARY: Denies cough, sputum production, pneumonia, asthma, tuberculosis. GENITOURINARY: Denies dysuria, hematuria, or nocturia. NEUROLOGIC: Denies localized numbness or weakness in arms or extremities, but does admit to poor memory. PHYSICAL EXAMINATION: GENERAL: The patient is an elderly white female, lying in bed, in no acute distress. VITAL SIGNS: On oxygen at this time with O2 sats 94% on 2 L, previously was 100% on room air, blood pressure 119/78, pulse 66, respirations 17. HEENT: Pupils are equal, round, and reactive to light and accommodation. Sclerae anicteric. Conjunctivae pale. Oral mucous membranes well hydrated. NECK: Supple. No nodes or masses. JVP is not elevated. LUNGS: Clear. NECK: No tenderness to palpation of the neck or on movement. CARDIAC: Regular rhythm. No gallops or murmurs. ABDOMEN: Soft and nontender with no masses or organomegaly. SKIN/EXTREMITIES: A small contusion and ecchymoses over the left artificial knee with no erythema or warmth, decreased range of motion, or swelling. Right knee shows good range of motion and no swelling, tenderness, or erythema. Both hips show no tenderness to palpation and there is no tenderness to palpation of the back. No tenderness to palpation on the neck and head. NEUROLOGICAL: Cranial nerves are intact. Deep tendon reflex 2+ and equal. Absent Babinski. LABORATORY DATA: White count 7300, hematocrit 36, hemoglobin 11. Sodium 142, potassium 3.3, chloride 97, bicarb 35, BUN 27, creatinine 1.28, alk phosphatase 56, total protein 5.8, albumin 3.5, globulin 2.3. CT of the pelvis and legs was as above. ASSESSMENT: An 89-year-old white female with history of hypertension, mild dementia, and degenerative joint disease status post bilateral total knee replacement, who has fallen and suffered a contusion of the left knee and has been unable to ambulate without pain and therefore, is placed in observation granger for pain relief and safety while monitoring her walking. She will be restarted back on her home medications of atenolol 12.5 three times daily, hydrochlorothiazide 12.5 mg daily, lisinopril 20 daily, pramipexole 0.5 twice daily, simvastatin 10 mg nightly. She has been given a 1000 mg of Tylenol in the emergency room, which she states has caused her minimal relief, we will try this through the night and may need to start her on a nonsteroidal anti-inflammatory drug if no relief. Job ID: [id number]
[2019-12-14] MEDS: Pramipexole Di-HCl 0.25 MG TAB PO SCH ×2 (08:45→21:07)
[2019-12-14] MEDS: Lisinopril 20 MG TAB PO SCH (08:45)
[2019-12-14] MEDS: Multivitamin W/ Minerals 1 TAB PO SCH (08:46)
[2019-12-14] MEDS: Atenolol 25 MG TAB PO SCH ×3 (08:46→21:06)
[2019-12-14] MEDS: Ascorbic Acid 500 mg Chewable Tablet PO SCH (08:46)
[2019-12-14] MEDS: Hydrochlorothiazide 25 MG TAB PO SCH (08:46)
[2019-12-14] MEDS: Aspirin 81 mg Enteric Coated Tablet PO SCH (08:46)
[2019-12-14] MEDS: Gabapentin 300 MG CAP PO SCH ×4 (08:46→21:07)
[2019-12-14] MEDS ORDERED: Non-Formulary Item 1 EACH (Lisinopril/Hydrochlorothiazide [Lisinopril-Hctz 20-12.5 Mg Tab PO SCH (09:00)
[2019-12-14 15:41] LABS: Bilirubin Negative (Negative); Blood, Urine Moderate (Negative); Clarity Clear (Clear); Glucose, Urine (Dipstick) Negative (Negative); Leukocyte Trace (Negative); Nitrite Negative (Negative); Protein, Urine (Dipstick) Negative (Neg-Trace); Urobilinogen 0.2 mg/dL (Less than 2)
[2019-12-14 15:43] LABS: Bacteria/HPF None Seen HPF (None Seen); RBC/HPF 0-3 HPF (0-3); WBC/HPF 0-3 HPF (0-3)
[2019-12-14] MEDS: Simvastatin 10 MG TAB PO SCH (21:06)
[2019-12-14] MEDS: Acetaminophen 500 MG TAB PO PRN (21:06)
[2019-12-15 08:30] VITALS: BP 115/78; TEMP 96.9
[2019-12-15] MEDS: Multivitamin W/ Minerals 1 TAB PO SCH (08:31)
[2019-12-15] MEDS: Atenolol 25 MG TAB PO SCH (08:31)
[2019-12-15] MEDS: Pramipexole Di-HCl 0.25 MG TAB PO SCH (08:31)
[2019-12-15] MEDS: Aspirin 81 mg Enteric Coated Tablet PO SCH (08:31)
[2019-12-15] MEDS: Gabapentin 300 MG CAP PO SCH (08:32)
[2019-12-15] MEDS: Lisinopril 20 MG TAB PO SCH (08:32)
[2019-12-15] MEDS: Hydrochlorothiazide 25 MG TAB PO SCH (08:32)
[2019-12-15] MEDS: Ascorbic Acid 500 mg Chewable Tablet PO SCH (08:32)
--- NOTE | 2019-12-19 03:43 | PQF ---
[employer] Win[employer] ViewerROSS SAM BUSTILLOS MD [id number] CLINICAL DOCUMENTATION CLARIFICATION FORM: POST DISCHARGE Addendum to original discharge summary date: ____ Late entry note date: __ DATE: 12/19/2019 ATTN:SAM DREW MD Please exercise your independent, professional judgment in responding to the clarification form. Clinical indicators are provided on the bottom of this form for your review Please check appropriate box(s): HEART FAILURE: A. TYPE: [ ] Systolic / HFrEF [ ] Diastolic / HFpEF [ ] Combined Systolic / Diastolic B. ACUITY [ ] Acute [ ] Acute on Chronic [ ] Chronic [ ] Other diagnosis [ X ] Unable to determine In addition, please specify: Present on Admission (POA): [ ] Yes [ ] No [ ] Unable to determine For continuity of documentation, please document condition throughout progress notes and discharge summary. Thank You. CLINICAL INDICATORS - SIGNS / SYMPTOMS / LABS CHF - Documented in H&P on 12/13 by SAM DREW MD her knee is tender and swollen - Documented in H&P on 12/13 by SAM DREW MD RISKS: HTN COPD TREATMENTS: Placed observation granger for monitoring - Documented in H&P on 12/13 by SAM DREW MD [employer] Win[employer] ViewerROSS SAM BUSTILLOS MD [id number] CLINICAL DOCUMENTATION CLARIFICATION FORM: POST DISCHARGE Addendum to original discharge summary date: ____ Late entry note date: __ DATE: 12/19/2019 ATTN:SAM DREW MD Please exercise your independent, professional judgment in responding to the clarification form. Clinical indicators are provided on the bottom of this form for your review Please check appropriate box(s): HEART FAILURE: A. TYPE: [ ] Systolic / HFrEF [ ] Diastolic / HFpEF [ ] Combined Systolic / Diastolic B. ACUITY [ ] Acute [ ] Acute on Chronic [ ] Chronic [ ] Other diagnosis [ ] Unable to determine In addition, please specify: Present on Admission (POA): [ ] Yes [ ] No [ ] Unable to determine For continuity of documentation, please document condition throughout progress notes and discharge summary. Thank You. CLINICAL INDICATORS - SIGNS / SYMPTOMS / LABS CHF - Documented in H&P on 12/13 by SAM DREW MD her knee is tender and swollen - Documented in H&P on 12/13 by SAM DREW MD RISKS: HTN COPD TREATMENTS: Placed observation granger for monitoring - Documented in H&P on 12/13 by SAM DREW MD [employer] Winform ViewerFERNDALE FRANCHESKA CORDOVA SAM DREW MD [id number] CLINICAL DOCUMENTATION CLARIFICATION FORM: POST DISCHARGE Addendum to original discharge summary date: ____ Late entry note date: __ DATE: 12/19/2019 ATTN:SAM DREW MD Please exercise your independent, professional judgment in responding to the clarification form. Clinical indicators are provided on the bottom of this form for your review Please check appropriate box(s): HEART FAILURE: A. TYPE: [ ] Systolic / HFrEF [ ] Diastolic / HFpEF [ ] Combined Systolic / Diastolic B. ACUITY [ ] Acute [ ] Acute on Chronic [ ] Chronic [ ] Other diagnosis [ ] Unable to determine In addition, please specify: Present on Admission (POA): [ ] Yes [ ] No [ ] Unable to determine For continuity of documentation, please document condition throughout progress notes and discharge summary. Thank You. CLINICAL INDICATORS - SIGNS / SYMPTOMS / LABS CHF - Documented in H&P on 12/13 by SAM DREW MD her knee is tender and swollen - Documented in H&P on 12/13 by SAM DREW MD RISKS: HTN COPD TREATMENTS: Placed observation granger for monitoring - Documented in H&P on 12/13 by SAM DREW MD [employer] (This form is maintained as a part of the permanent medical record) 2014 [employer], [employer]. All Rights Reserved [email or web address]
== END 2019-12-15 12:45 | disposition home health service (06) | DRG 605 ==
LOC: NAV ERS 07:00 → OBSVTOIN 11:31 → NAV ACUTE 11:31 → UNDODISOB 12-15 12:45
PROVIDERS: ADMIT Internal Medicine; ATTEND Internal Medicine
DX: S80.02XA Contusion of left knee, initial encounter (principal); R26.2 Difficulty in walking, not elsewhere classified; F03.90 Unspecified dementia, unspecified severity, without behavioral disturbance, psychotic disturbance, mood disturbance, and anxiety; Z96.653 Presence of artificial knee joint, bilateral; I11.0 Hypertensive heart disease with heart failure; I50.9 Heart failure, unspecified; E78.5 Hyperlipidemia, unspecified; J44.9 Chronic obstructive pulmonary disease, unspecified; Z90.49 Acquired absence of other specified parts of digestive tract; Z90.710 Acquired absence of both cervix and uterus; Z79.82 Long term (current) use of aspirin; W01.0XXA Fall on same level from slipping, tripping and stumbling without subsequent striking against object, initial encounter
CPT/HCPCS: 36415; 72192; 80053; 81003; 81015; 85025